=== PATIENT | female | born 1965 | race Caucasian/White ===

== ENCOUNTER → 2017-09-12 10:21 | Outpatient (CLI) | payer MEDICAID, SELFPAY ==
[2017-09-12 11:44] LABS: Absolute Lymphocyte Count 1.47 X10^3/ul (0.83-4.51); Absolute Neutrophil Count 4.2 X10^3/uL (2.0-7.7); Basophil# 0.05 X10^3/uL; Basophil% 0.8 % (0-1); Eosinophil# 0.15 X10^3/uL; Eosinophils% 2.3 % (0-5); Hematocrit 43.5 % (37-47); Hemoglobin 14.2 g/dl (12.0-15.0); Lymphocyte # 1.47 X10^3/ul (4.0); Lymphocyte % 22.9 % (19-41); Mean Corp Hgb Conc 32.6 g/gl (32-36); Mean Corpuscular Volume 88.8 fL (81-99); Mean Platelet Vol. 10.8 fl (6.2-12.0); Monocyte# 0.55 X10^3/uL; Monocyte% 8.6 % (0-10); Neutrophil # 4.19 X10^3/uL (2.7-7.7); Neutrophil % 65.1 % (47-70); POSITIVE COUNT NO; POSITIVE DIFFERENTIAL NO; POSITIVE MORPHOLOGY NO; Platelet Count 375 K/mm3 (150-450); RBC Distribution Width CV 14.6 % (11.6-14.6); White Blood Count 6.4 K/mm3 (4.4-11.0)
[2017-09-12 11:48] LABS: Prothrombin Time (Protime)PT. 13.2 SECONDS (11.7-14.9)
[2017-09-12 12:04] LABS: Anion Gap 10 (5-15); BUN 17 mg/dL (7-18); BUN/Creat Ratio 17.6 RATIO (10-20); Calcium,Total 8.8 mg/dL (8.5-10.1); Chloride 105 mmol/L (98-107); Creatinine, Serum 0.96 mg/dL (0.55-1.02); EST Glomerular Filtration Rate 64 mL/min (>60); Est Glom Filt Rate - Afr Amer 78 mL/min (>60); Glucose 80 mg/dL (74-106); Potassium 3.9 mmol/L (3.5-5.1); Sodium Level 140 mmol/L (136-145)
== END ==
PROVIDERS: Family Provider Family Medicine; PCP Family Medicine; Visit Provider Internal Medicine Cardiovascular Disease
DX: R94.39 Abnormal result of other cardiovascular function study (principal)
CPT/HCPCS: 36415; 80048; 85025; 85610

== ENCOUNTER → 2017-09-13 09:59 | Day surgery (SDC) | payer MEDICAID, SELFPAY ==
[2017-09-12 11:23] VITALS: BMI 25.2
[2017-09-13 11:44] LABS: Pregnancy, Serum, hCG Quali. NEGATIVE Negative (0-9 Nonpreg)
--- NOTE | 2017-09-13 12:46 | CL.D_ITS ---
Patient Name: BRAD HOPPER Study Date: 09/13/2017 Performing: Ebenezer Lama MD Ht: 66.92 inches 170 cm : 1965 Wt: 160.94 lbs 73 kg Age: 52 Gender: female BSA: 1.84 PROCEDURE(S) PERFORMED KP29-PUT/COR/LV CLINICAL PROFILE AND INDICATIONS Indications: Other Heart Failure: None Stress/Imaging Stress Test w/SPECT MPI: Yes Result: Positive Low RiskStress Test with SPECT MPI: Positive Low Risk Angina Classification Anginal Classification w/in 2 Weeks: CCS I CAD Presentations: No Sxs, no angina. CONCLUSIONS Normal coronary arteries Normal LV size, wall motion,and systolic function RECOMMENDATIONS Medical therapy DESCRIPTION OF PROCEDURE The patient arrived to the procedure lab. The risks and benefits of the procedure as well as a full d escription of our services here and current unavailability of surgical backup were fully explained to the patient and/or their significant other prior to the catheterization. The Timeout was completed, verifying the correct patient and procedure. The patient's procedural site was prepped and draped in the usual fashion. Local anesthetic was given subcutaneously to right groin region with Lidocaine 2%. Using a modified Seldinger technique, Left Coronary Artery selective angiography was performed in multiple views using a 5 Fr. JL4 catheter. Right Coronary Artery selective angiography was then perfo rmed in multiple views using a 5 Fr. 3DRC (Jorge) catheter. Left Ventriculography was performed in HOWELL projection using a 5 Fr. Pigtail catheter. LV to AO pullback pressures were then recorded.The ar terial sheath was pulled and a Mynx closure device was deployed for hemostasis CORONARY ANGIOGRAPHY DOMINANCE: Right Dominant LEFT HEART ASSESSMENT Left Ventricular Ejection Fraction: by LV Gram 60 % Normal LV wall motion Normal Left Ventricular systolic function Normal Left Ventricular systolic function LEFT MAIN: Angiographically normal LEFT ANTERIOR DECENDING ARTERY: Angiographically normal CIRCUMFLEX ARTERY: Angiographically normal RIGHT CORONARY ARTERY: Angiographically normal COMPLICATIONS No Complications PROCEDURE MEDICATIONS Versed 1 mg IV Oxygen: 2 L/min via nasal cannula SUMMARY OF HEMODYNAMIC DATA Time AIR REST ECG 10:34:10 AO 121/77 (96) SA 12:20:42 LV 103/3, 9 12:25:59 LV 140/3, 11 12:26:06 LV 122/0, 13 12:27:18 LVp 123/0, 13 12:27:21 AOp 131/72 (96) 12:27:26 Signed By Ebenezer Lama MD On 09/13/2017 12:46:12 Ebenezer Lama MD
== END ==
PROVIDERS: Family Provider Family Medicine; PCP Family Medicine; Visit Provider Internal Medicine Cardiovascular Disease
DX: R94.39 Abnormal result of other cardiovascular function study (principal); E78.5 Hyperlipidemia, unspecified; F32.9 Major depressive disorder, single episode, unspecified; M79.7 Fibromyalgia; K21.9 Gastro-esophageal reflux disease without esophagitis; E03.9 Hypothyroidism, unspecified; Z87.891 Personal history of nicotine dependence
CPT/HCPCS: 84703; 93458; 99152; 99153; C1760; J7030; C1769; Q9967

== ENCOUNTER → 2017-09-26 09:50 | Outpatient (CLI) | payer MEDICAID, SELFPAY ==
--- NOTE | 2017-09-26 09:53 | US_ITS ---
STUDY: ABDOMINAL ULTRASOUND - RIGHT UPPER QUADRANT REASON FOR VISIT: Female, 52 years old. Right upper quadrant pain. TECHNIQUE: Ultrasound evaluation of the right upper quadrant was performed with real-time and static minaya-scale imaging. TECHNICAL QUALITY: Adequate. COMPARISON: None. FINDINGS: Liver: The liver measures 14.6 cm. There is normal echogenicity of the liver. The bile ducts are within normal limits. There is hepatic color flow. The direction of portal flow is hepatopetal. There is no demonstrated mass lesion. Gallbladder: Normal distended gallbladder. The gallbladder wall measures 2.6 mm. There is a negative sonographic Garcia's sign. There is no pericholecystic fluid. There is a solitary echogenic gallstone within the gallbladder. This measures 1.3 cm x 1 cm. Common Bile Duct (C.B.D.): The common bile duct measures 4.2 mm. Pancreas: Normal size of the head, body of the pancreas. The tail portion is obscured due to overlying bowel gas. There is normal echogenicity of the pancreas. There is no demonstrated pancreatic mass or cyst. Right Kidney: Normal size of the right kidney. The right kidney measures 10.2 cm x 4.9 cm x 5.0 cm. Normal renal cortex. The right cortex measures 1.0 cm. There is no demonstrated renal mass or cyst. There is no right hydronephrosis. US/Abdomen Limited IMPRESSION: Solitary gallstone. Electronically Signed: Oleg Maddox MD at 11:17 EDT Tel [phone], Service support ,
== END ==
PROVIDERS: Family Provider Family Medicine; PCP Family Medicine; Visit Provider Family Medicine
DX: R10.11 Right upper quadrant pain (principal)
CPT/HCPCS: 76705

== ENCOUNTER 2017-10-11 08:52 | Day surgery (SDC) | payer MEDICAID, SELFPAY ==
--- NOTE | 2017-10-11 | IMM_PTH ---
PATIENT: BRAD PROCTOR LOC: EN U#:[id number] AGE/SX: 52/F ROOM: RE10/11/[address]: Dr. Jamar Madrigal MD : 1965 BED: DIS: 10/11/2017 SPEC #: [id number] RECD: 10/14/17 11:31 STATUS: JOSE DANILO #: [id number] LOUIS: 10/11/17 00:[address]: Jamar Madrigal DEPT: IMMUNOHISTOCHEMISTRY RECD BY: Angeline Clayton ENTERED: 10/14/17 11:31 SP TYPE: IMMUNO OTHR DR: Loretta Finley DO Tissues: A - Stomach, NOS Procedures: H Pylori (initial) PHYSICIAN & INSTITUTION [place] [id number] SPECIMEN INFORMATION: Tissue Source: A ? Biopsy gastric antrum Clinical Info: Epigastric pain, dysphagia Specimen Number: [id number] CPT code: 69385 METHODOLOGY: Deparaffinized sections of prefer/formalin-fixed tissue or PAP/DQ stained slides are incubated with monoclonal/polyclonal antibodies/oligonucleotide probes. Localization is made via biotin free immunoperoxidase method. Appropriate controls are performed and reacted as expected. Results on target cell population are indicated in the following table: RESULTS: ANTIBODY / CLONE RESULT Block A H Pylori (polyclonal) negative These tests were developed and their performance characteristics determined by [facility]. They may not have been cleared or approved by the U.S. Food and Drug Administration. The FDA has determined that such clearance or approval is not necessary. INTERPRETATION: A. Gastric antrum, biopsy: Negative for Helicobacter pylori organisms. SJ:ina 10/14/17
[2017-10-11 09:15] VITALS: BP 110/76; PULSE 73; RESP 16; TEMP 36.4; O2SAT 100; BMI 25.0
[2017-10-11 09:15] LABS: Internal QC Validated? YES +Cl - CLEAR BKGD; Pregnancy, Urine Negative Negative
--- NOTE | 2017-10-11 10:11 | GASB_PTH ---
PATIENT: BRAD PROCTOR LOC: EN U#:[id number] AGE/SX: 52/F ROOM: RE10/11/[address]: Dr. Jamar Madrigal MD : 1965 BED: DIS: 10/11/2017 SPEC #: [id number] RECD: 10/11/17 13:58 STATUS: JOSE DANILO #: [id number] LOUIS: 10/11/17 10:[address]: Jamar Madrigal DEPT: SURGICAL PATHOLOGY RECD BY: Dylan Leyva ENTERED: 10/11/17 13:58 SP TYPE: Gastric Bx OTHR DR: Loretta Finley DO Tissues: A - Gastric mucous membrane B - Gastric mucous membrane Procedures: Surgery Specimen Level IV HEADER OPERATION: EGD with biopsy and polypectomy PRE-OP DIAGNOSIS: Epigastric pain, dysphagia TISSUE SUBMITTED: A ? Biopsy gastric antrum ? path/H. pylori, B ? Gastric polyp MICROSCOPIC DIAGNOSIS A. Gastric antrum, biopsy: Mild gastritis. B. Gastric polyp, polypectomy: Fundic gland polyp. EVERTON:ina 10/14/17 COMMENT A. The results of immunohistochemistry for Helicobacter pylori will be reported separately ([id number]). MICROSCOPIC DESCRIPTION Slides are reviewed. A. The specimen shows fragments of gastric mucosa with chronic inflammatory cell infiltrates in the lamina propria consisting of lymphocytes and plasma cells, consistent with mild chronic gastritis. GROSS DESCRIPTION A - Received in fixative is one container labeled with the patient's name and designated biopsy gastric antrum. The specimen consists of two irregular fragments of light roca soft tissue that in aggregate measure 0.8 x 0.3 x 0.1 cm. The specimen is totally submitted in one cassette. B - Received in fixative is one container labeled with the patient's name and designated gastric polyp. The specimen consists of a pink-red polyp measuring 1.4 x 1 x 0.5 cm. The apparent base is inked. The specimen is serially sectioned and submitted entirely in one cassette. / EVERTON:ina 10/11/17 TC:3 CPT: 03659 x2
[2017-10-11 10:23] VITALS: BP 100/74; BP 110/76; PULSE 63; RESP 19; TEMP 36.6; O2SAT 98
[2017-10-11 10:28] VITALS: BP 110/76; BP 99/77; PULSE 68; RESP 17; O2SAT 98
--- NOTE | 2017-10-11 10:31 | OP.PCM_ITS ---
Problem List (1) Epigastric pain Status: Acute Report of Operation Date of Procedure: 10/11/17 Pre-Operative Diagnosis: Epigastric pain and dysphagia Post-Operative Diagnosis: Multiple stomach polyps. Hiatal hernia Surgery/Procedure Performed:: EGD with biopsy and snare polypectomy Specimen's removed: 1. Antral biopsy. 2. Gastric polyp Description of Procedure: The major risks and benefits associated with the procedure were explained to the patient in detail. The patient verbalized understanding and agreement with the same. The patient was then placed in the left lateral decubitus position. IV sedation was started by anesthesia. The endoscope was then advanced under direct visualization over the tongue, into the esophagus , stomach and duodenum. It was slowly withdrawn and the mucosa was carefully evaluated. Duodenal mucosal abnormalities were not visualized. Retrograde views of the stomach did reveal moderate sized hiatal hernia. A biopsy of the antrum was performed with cold forceps. The patient had innumerable large gastric polyps of the fundus and cardia of the stomach. 1 of these was selected and removed with snare. These polyps were very large and covered these areas of the stomach. The antrum was spared. The scope was straightened and withdrawn into the hiatal hernia. The GE junction was normal and did not show any signs of Plasencia's esophagus. There were no strictured areas to explain the patient's dysphagia. Careful examination of the remainder of the esophagus was normal. The scope was then withdrawn from the patient and the procedure terminated. It was well tolerated and there were no immediate complications.
[2017-10-11 10:33] VITALS: BP 106/72; BP 110/76; PULSE 62; RESP 16; O2SAT 96
[2017-10-11 10:38] VITALS: BP 104/79; BP 110/76; PULSE 63; RESP 16; TEMP 37; O2SAT 99
[2017-10-11 11:32] VITALS: BP 110/76
== END 2017-10-11 11:33 | disposition home or self-care (01) ==
LOC: EN 08:52 → AC 08:54
PROVIDERS: Anesthesiology; Family Provider Family Medicine; PCP Family Medicine; Visit Provider Surgery
PROC: 0DJ08ZZ Inspection of Upper Intestinal Tract, Via Natural or Artificial Opening Endoscopic (ICD-10-PCS; CPT 43235; principal; 2017-10-11 09:55)
DX: K31.7 Polyp of stomach and duodenum (principal); K29.70 Gastritis, unspecified, without bleeding; K80.20 Calculus of gallbladder without cholecystitis without obstruction; R13.10 Dysphagia, unspecified; K44.9 Diaphragmatic hernia without obstruction or gangrene; E78.5 Hyperlipidemia, unspecified; F32.9 Major depressive disorder, single episode, unspecified; M79.7 Fibromyalgia; K21.9 Gastro-esophageal reflux disease without esophagitis; E03.9 Hypothyroidism, unspecified; Z87.891 Personal history of nicotine dependence
CPT/HCPCS: 43251; 81025; 88305; 88342; J7120

== ENCOUNTER 2018-10-16 08:01 | Day surgery (SDC) | payer MEDICAID, SELFPAY ==
[2018-10-03 13:34] VITALS: BMI 25.0
[2018-10-16 08:27] VITALS: BP 114/81; PULSE 73; RESP 16; TEMP 36.1; O2SAT 98
--- NOTE | 2018-10-31 09:21 | HP_ITS ---
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 Is patient in pain?: No Allergies Penicillins Allergy (Verified 10/30/18 14:48) rash Medications esomeprazole magnesium 20 mg capsule,delayed release 40 mg PO QDAY cap 09/10/17 [History Confirmed 10/30/18] levothyroxine 25 mcg tablet 25 mcg PO QDAY tab 09/10/17 [History Confirmed 10/30/18] sumatriptan 100 mg tablet 100 mg PO ONCE PRN 09/10/17 [History Confirmed 10/30/18] Cholecalciferol (Vitamin D3) [Vitamin D3] 1,000 unit PO DAILY 10/07/17 [History Confirmed 10/30/18] PFS Medical History Chest pain (Acute) Abnormal cardiovascular stress test (Acute) Hyperlipidemia (Chronic) Depression (Chronic) Fibromyalgia (Chronic) GERD (gastroesophageal reflux disease) (Chronic) Hiatal hernia (Chronic) History of ETOH abuse (Chronic) Hypothyroidism (Chronic) IBS (irritable bowel syndrome) (Chronic) Kidney stones (Chronic) Migraine (Chronic) Rosacea (Chronic) Surgical History H/O right heart catheterization (Acute) History of esophagogastroduodenoscopy (EGD) (Acute) History of appendectomy (Chronic) History of ovarian cystectomy (Chronic) kidney stone removal (Chronic) right shoulder surgery (Chronic) Family History Father CAD (coronary artery disease) Myocardial infarction [place] age 68 Brother Kidney disease renal cancer Cancer Mother Cancer Hypertension Social History Smoking Status: Former smoker quit date: 06/10/15 pack-years: 2 alcohol intake: former year quit: 2016 HPI HPI HPI: BRAD HOPPER, is a 53 F who presents to the office today for HPI HPI Surgical H&P: Yes HPI: BRAD HOPPER, is a 53 F who presents to the office today for follow-up after manometry. Patient reports that her dysphasia and GERD have been getting worse. ROS General General: Yes appetite; no weight change, fatigue, colon cancer, breast cancer or weakness HEENT HEENT: No difficulty swallowing, eye injury, eye surgery, swollen glands or hoarseness Endo Endocrine: Yes thyroid disease; no diabetes mellitus, thyroid cancer, Hair loss, heat intolerance or cold intolerance Musc Musculoskeletal: No back problems, arthritis, rheumatoid arthritis, gout or joint pain Cardio Cardiovascular: Yes chest pain; no murmur, pacemaker, heart disease, atrial fibrillation, high blood pressure, heart attack, heart stent, palpitations or shortness of breat with exertion Psych Psychiatric: Yes depression; no anxiety or hearing voices Resp Respiratory: No shortness of breath, No sleep apnea, No cough, No COPD, No asthma, No emphysema, No wheezing Gastro Gastrointestinal: Yes abdominal pain, No nausea or vomiting, No diarrhea, No constipation, No blood in stool, Yes acid reflux, No hemorrhoids, No ulcers, Yes gallbladder problem, No black,tarry stools Neuro Neurologic: No weakness Exam Const General: cooperative Orientation: alert, oriented x3 Resp Effort & Inspection: normal respiratory effort Auscultation: clear to auscultation bilaterally Cardio Rate: regular rate Rhythm: regular rhythm Heart Sounds: no murmurs GI Inspection: non-distended Palpation: soft, nontender Assessment & Plan Problems 1. Gastroesophageal reflux disease, esophagitis presence not specified K21.9 2. Hiatal hernia K44.9 Plan Patient has GERD and a hiatal hernia. She is experiencing dysphagia and refractory heart burn. She had manometry which showed weak swallow. The next step in her preoperative work-up would be an EGD with pH probe. I discussed toupet fundoplication with the patient due to her manometry results. I discussed the risks of the procedure as well as the benefits. I we will discuss further after EGD is performed. I explained endoscopy in detail to the patient. I explained the risks including but not limited to stroke or heart attack with anesthesia, perforation of the GI tract, bleeding, infection. I explained that any of these could necessitate further emergency surgery. The patient understands and all questions were answered sufficiently. The patient wishes to proceed with procedure. Jamar Madrigal MD Pager: [facility] [place] [facility] [address] [place] [address], [address] [place] [address] Office: Orders Orders: EGD with 48 pH probe 10/30/18 K21.9, R10.13, R13.10 Coding Level of Care Code Off vis,est,level 3 Diagnoses Gastroesophageal reflux disease, esophagitis presence not specified K21.9 ??Esophagitis presence: esophagitis presence not specified Hiatal hernia K44.9 10/31/18 0921 <Electronically signed by Jamar Madrigal MD> Date Jamar Madrigal MD
== END 2018-10-16 08:45 | disposition home or self-care (01) ==
LOC: EN 08:02
PROVIDERS: Family Provider Family Medicine; PCP Family Medicine; Referring Provider Surgery; Visit Provider Surgery
PROC: F00ZJWZ Instrumental Swallowing and Oral Function Assessment using Swallowing Equipment (ICD-10-PCS; CPT 43235; principal; 2018-10-16 07:55)
DX: K21.9 Gastro-esophageal reflux disease without esophagitis (principal); R13.10 Dysphagia, unspecified; E78.5 Hyperlipidemia, unspecified; F32.9 Major depressive disorder, single episode, unspecified; M79.7 Fibromyalgia; E03.9 Hypothyroidism, unspecified; K58.9 Irritable bowel syndrome, unspecified; G43.909 Migraine, unspecified, not intractable, without status migrainosus; L71.9 Rosacea, unspecified; Z87.442 Personal history of urinary calculi; Z87.891 Personal history of nicotine dependence
CPT/HCPCS: 91010

== ENCOUNTER 2018-11-18 09:50 | Day surgery (SDC) | payer MEDICAID, SELFPAY ==
[2018-10-30 14:52] VITALS: BMI 25.4
--- NOTE | 2018-10-31 09:21 | HP_ITS ---
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 Is patient in pain?: No Allergies Penicillins Allergy (Verified 10/30/18 14:48) rash Medications esomeprazole magnesium 20 mg capsule,delayed release 40 mg PO QDAY cap 09/10/17 [History Confirmed 10/30/18] levothyroxine 25 mcg tablet 25 mcg PO QDAY tab 09/10/17 [History Confirmed 10/30/18] sumatriptan 100 mg tablet 100 mg PO ONCE PRN 09/10/17 [History Confirmed 10/30/18] Cholecalciferol (Vitamin D3) [Vitamin D3] 1,000 unit PO DAILY 10/07/17 [History Confirmed 10/30/18] PFS Medical History Chest pain (Acute) Abnormal cardiovascular stress test (Acute) Hyperlipidemia (Chronic) Depression (Chronic) Fibromyalgia (Chronic) GERD (gastroesophageal reflux disease) (Chronic) Hiatal hernia (Chronic) History of ETOH abuse (Chronic) Hypothyroidism (Chronic) IBS (irritable bowel syndrome) (Chronic) Kidney stones (Chronic) Migraine (Chronic) Rosacea (Chronic) Surgical History H/O right heart catheterization (Acute) History of esophagogastroduodenoscopy (EGD) (Acute) History of appendectomy (Chronic) History of ovarian cystectomy (Chronic) kidney stone removal (Chronic) right shoulder surgery (Chronic) Family History Father CAD (coronary artery disease) Myocardial infarction [place] age 68 Brother Kidney disease renal cancer Cancer Mother Cancer Hypertension Social History Smoking Status: Former smoker quit date: 06/10/15 pack-years: 2 alcohol intake: former year quit: 2016 HPI HPI HPI: BRAD HOPPER, is a 53 F who presents to the office today for HPI HPI Surgical H&P: Yes HPI: BRAD HOPPER, is a 53 F who presents to the office today for follow-up after manometry. Patient reports that her dysphasia and GERD have been getting worse. ROS General General: Yes appetite; no weight change, fatigue, colon cancer, breast cancer or weakness HEENT HEENT: No difficulty swallowing, eye injury, eye surgery, swollen glands or hoarseness Endo Endocrine: Yes thyroid disease; no diabetes mellitus, thyroid cancer, Hair loss, heat intolerance or cold intolerance Musc Musculoskeletal: No back problems, arthritis, rheumatoid arthritis, gout or joint pain Cardio Cardiovascular: Yes chest pain; no murmur, pacemaker, heart disease, atrial fibrillation, high blood pressure, heart attack, heart stent, palpitations or shortness of breat with exertion Psych Psychiatric: Yes depression; no anxiety or hearing voices Resp Respiratory: No shortness of breath, No sleep apnea, No cough, No COPD, No asthma, No emphysema, No wheezing Gastro Gastrointestinal: Yes abdominal pain, No nausea or vomiting, No diarrhea, No constipation, No blood in stool, Yes acid reflux, No hemorrhoids, No ulcers, Yes gallbladder problem, No black,tarry stools Neuro Neurologic: No weakness Exam Const General: cooperative Orientation: alert, oriented x3 Resp Effort & Inspection: normal respiratory effort Auscultation: clear to auscultation bilaterally Cardio Rate: regular rate Rhythm: regular rhythm Heart Sounds: no murmurs GI Inspection: non-distended Palpation: soft, nontender Assessment & Plan Problems 1. Gastroesophageal reflux disease, esophagitis presence not specified K21.9 2. Hiatal hernia K44.9 Plan Patient has GERD and a hiatal hernia. She is experiencing dysphagia and refractory heart burn. She had manometry which showed weak swallow. The next step in her preoperative work-up would be an EGD with pH probe. I discussed toupet fundoplication with the patient due to her manometry results. I discussed the risks of the procedure as well as the benefits. I we will discuss further after EGD is performed. I explained endoscopy in detail to the patient. I explained the risks including but not limited to stroke or heart attack with anesthesia, perforation of the GI tract, bleeding, infection. I explained that any of these could necessitate further emergency surgery. The patient understands and all questions were answered sufficiently. The patient wishes to proceed with procedure. Jamar Madrigal MD Pager: [facility] [address] [place] [address], [address] [place] [address] Office: Orders Orders: EGD with 48 pH probe 10/30/18 K21.9, R10.13, R13.10 Coding Level of Care Code Off vis,est,level 3 Diagnoses Gastroesophageal reflux disease, esophagitis presence not specified K21.9 ??Esophagitis presence: esophagitis presence not specified Hiatal hernia K44.9 10/31/18 0921 <Electronically signed by Jamar Madrigal MD> Date Jamar Madrigal MD ` I have re-examined the patient. There are no clinical changes since date of exam.
[2018-11-18] VITALS (7 sets, daily range): BP systolic 100–108; BP diastolic 66–75; PULSE 54–78; RESP 14–16; TEMP 36.4–37; O2SAT 94–97; BMI 25.0
[2018-11-18 10:26] LABS: Internal QC Validated? YES +Cl - CLEAR BKGD; Pregnancy, Urine Negative Negative
--- NOTE | 2018-11-18 12:27 | OP.ENDO_ITS ---
11/18/2018 Loretta Camacho Do Re : Upper GI endoscopy procedure for Mari Echavarria Dear Janice This procedure was performed on Sunday, November 18, 2018. My impressions and recommendations are as follows: Impressions : - Medium-sized hiatal hernia. - Z-line regular, 37 cm from the incisors. - The HADLEY pH capsule was positioned 30 cm from the incisors, which was 5 cm proximal to the GE junction. - No specimens collected. Recommendations : - Discharge patient to home. - Resume previous diet. - Continue present medications. My findings are described in the full procedure note, which is enclosed. If I can be of further assistance, please feel free to contact me at Doctor phone number(s): , Work: . Sincerely, Jamar Madrigal MD 11/18/2018 12:27:04 PM This report has been signed electronically.
== END 2018-11-18 13:43 | disposition home or self-care (01) ==
LOC: EN 09:52 → AC 09:53
PROVIDERS: Anesthesiology; Family Provider Family Medicine; PCP Family Medicine; Referring Provider Family Medicine; Visit Provider Surgery
PROC: (CPT 43235; principal; 2018-11-18 10:55)
DX: K44.9 Diaphragmatic hernia without obstruction or gangrene (principal); K21.9 Gastro-esophageal reflux disease without esophagitis; Z88.0 Allergy status to penicillin; Z87.891 Personal history of nicotine dependence; R12 Heartburn
CPT/HCPCS: 43235; 81025; J7120

== ENCOUNTER 2019-01-05 13:48 | Observation (INO) | payer MEDICAID, SELFPAY ==
[2018-11-18 10:21] VITALS: BMI 25.0
--- NOTE | 2018-12-30 10:28 | EKG12_ITS ---
Test Reason : PRE OP Blood Pressure : / mmHG Vent. Rate : 071 BPM Atrial Rate : 071 BPM P-R Int : 158 ms QRS Dur : 092 ms QT Int : 402 ms P-R-T Axes : 039 -33 060 degrees QTc Int : 436 ms Normal sinus rhythm Left axis deviation Abnormal ECG Confirmed by TACO BAEZ ([id number]), copy editor NARENDRA ELIZABETH ([id number]) on 01/01/2019 10:00:30 AM Referred By: Jamar Madrigal Confirmed By:TACO BAEZ
[2019-01-05] VITALS (11 sets, daily range): BP systolic 96–109; BP diastolic 62–82; PULSE 60–84; RESP 14–18; TEMP 36–37.3; O2SAT 94–100; BMI 25.4
--- NOTE | 2019-01-05 09:18 | HP.PCM_ITS ---
Problem List (1) Hiatal hernia Status: Acute (2) GERD (gastroesophageal reflux disease) Status: Acute Qualifiers: History of Present Illness Date of Admission: 01/05/19 The patient is a 53 year old F here for elective repair of hiatal hernia and toupee fundoplication. Patient does not report any changes since last time I saw her. Past Medical History Past Medical History (Chronic Problems): Chronic Problems (Last Reviewed 10/30/18 @ 14:40 by Susan Jaramillo) Hyperlipidemia (Chronic) Medical History: Medical History (Last Reviewed 10/30/18 @ 14:40 by Susan Jaramillo) Chest pain (Acute) R07.9 Abnormal cardiovascular stress test (Acute) R94.39 Hyperlipidemia (Chronic) E78.5 Depression F32.9 Fibromyalgia M79.7 GERD (gastroesophageal reflux disease) K21.9 Hiatal hernia K44.9 History of ETOH abuse Z87.898 Hypothyroidism E03.9 IBS (irritable bowel syndrome) K58.9 Kidney stones N20.0 Migraine G43.909 Rosacea L71.9 Allergies Penicillins Allergy (Verified 12/29/18 09:05) rash Home Medications: Ambulatory Orders Medication Instructions Recorded levothyroxine 25 mcg tablet 25 mcg PO QDAY tab 09/10/17 sumatriptan 100 mg tablet 100 mg PO ONCE PRN 09/10/17 Cholecalciferol (Vitamin D3) 1,000 unit PO DAILY 10/07/17 [Vitamin D3] Famotidine [Pepcid AC] 20 mg PO PRN PRN 12/29/18 Medroxyprogesterone Acetate 10 mg PO DAILY 12/29/18 [Provera] Surgical History: Surgical History (Last Reviewed 10/30/18 @ 14:40 by Susan Jaramillo) H/O right heart catheterization Z98.890 negative 09/25 History of esophagogastroduodenoscopy (EGD) Z98.890 History of appendectomy Z90.49 History of ovarian cystectomy Z98.890, Z87.42 kidney stone removal right shoulder surgery Smoking Status: Former smoker Review of Systems Constitutional: Denies: Anorexia, Chills HEENT: Denies: Difficulty Swallowing Cardiovascular: Denies: Chest Pain Respiratory: Denies: Cough, Shortness of Breath Gastrointestinal: Denies: Abdominal Pain, Nausea, Vomiting Musculoskeletal: Denies: Joint Tenderness Skin: Denies: Dryness, Jaundice Neurological: Denies: Balance problems Hematologic/ Lymphatic: Denies: Anemia VTE Information - Inpt Only VTE Present on Admission: No VTE Mechan Device Prophylaxis: SCD's - Physical Exam General: Alert, Oriented x3 Neck: No JVD Lungs: Normal air movement Cardiovascular: Regular rate, Regular Rhythm Abdomen: Soft, Non Tender, Non-Distended Body Mass Index (BMI) 25.0 Assessment/Plan All Active Problems (Last Reviewed 10/30/18 @ 14:40 by Susan Jaramillo) Hiatal hernia (Acute) GERD (gastroesophageal reflux disease) (Acute) Dysphagia (Acute) Epigastric pain (Acute) Chest pain (Acute) Abnormal cardiovascular stress test (Acute) 53-year-old female with GERD and hiatal hernia 1. Patient has had extensive work-up before surgery. She had upper GI as well as manometry and EGD with pH probe. Patient has hiatal hernia and pH probe demonstrated elevated DeMeester score. The patient also had slightly weak in swallow and manometry so to payphone application was recommended instead of Yanna fundoplication. I discussed hiatal hernia repair and toupee fundoplication to the patient in great detail as well as the risks. The patient is here for laparoscopic hiatal hernia repair and toupee fundoplication. Jamar Madrigal MD Pager: [facility] [address] [place] [address], [address] [place] [address] Office:
[2019-01-05 09:57] LABS: Internal QC Validated? YES +Cl - CLEAR BKGD; Pregnancy, Urine Negative Negative
[2019-01-05] MEDS: Bupiv/Epi 0.5% Mpf 30 ML Vial (09:57)
--- NOTE | 2019-01-05 13:55 | PCM.OPRPT ---
Problem List (1) Hiatal hernia Status: Acute (2) GERD (gastroesophageal reflux disease) Status: Acute Qualifiers: Esophagitis presence: esophagitis presence not specified Report of Operation Date of Procedure: 01/05/19 Pre-Operative Diagnosis: GERD and hiatal hernia Post-Operative Diagnosis: Same Surgery/Procedure Performed:: 1. Laparoscopic hiatal hernia repair with toupet fundoplication. 2. EGD Description of Procedure: Patient was brought back to the operating room and general anesthesia was induced. The abdomen was prepped and draped in usual sterile fashion. A small incision was made in the skin superior and left of the umbilicus. A 5 mm port was placed into this incision using Visiport technique with 5 mm camera. Once the abdomen was entered it was insufflated to 15 mmHg. The abdomen was inspected and there were no injuries from entry. Next under direct visualization a 12 mm port was placed in the right upper quadrant and a 5 mm port right sided laterally as well as a 5 mm port left-sided laterally. A small incision was made in the subxiphoid space and the Myra liver retractor was placed into this incision and used to elevate the left lobe of the liver and secured in place on the Omni-Tract. Next the hepatogastric ligament was divided using harmonic scalpel. The right crura was identified and dissected free using the harmonic scalpel and blunt dissection. The stomach and hiatal hernia sac were reduced into the abdomen. The esophagus was dissected free superiorly. Next attention was paid to the greater curvature. The greater curvature was entered using the harmonic scalpel and elevated. The greater curvature was followed superiorly past the short gastrics and splenogastric ligament. Once the stomach was mobilized it was retracted medially and the left crura was dissected free. A small window was made beneath the esophagus. A small [place] drain was placed around the esophagus and this was used to elevate the esophagus. Using a combination of blunt and harmonic dissection the esophagus was dissected free into the mediastinum and cephalad. The Nadine was released and there was at least 2 cm of esophagus present in the abdomen without tension. Next the stomach was retracted laterally and 3 interrupted Nurolon sutures were used to reapproximate the crura and obliterate the hiatal hernia space. There was still ample room around the esophagus that this was not tight. Next the wrap was placed behind the esophagus and there was no tension on it. A single Nurolon suture was placed posteriorly between the stomach and the crura. Next anteriorly an 0 Nurolon suture was placed between the distal fundus and the esophagus and yaw-phrenic ligament. This was tied and then in a continuous fashion run inferiorly wrapping the fundus of the stomach to the esophagus. In a similar fashion the lateral fundus of the stomach was sutured to the esophagus creating a partial toupee wrap. The wrap appeared to be about 270 degrees with anterior portion of the esophagus unwrapped. Next an EGD scope was placed into the mouth and down into the esophagus. The scope passed easily into the stomach and it was retroflexed in the stomach was insufflated. There is no leak or bubbles noted in the abdomen. Retroflexed view revealed a good wrap of the esophagus with no hiatal hernia or bleeding. The air was suctioned from the stomach and the scope was removed. Next the 12 mm port was removed under direct visualization. Using an 0 Vicryl suture in a minaya needle the fascia of this incision was closed with an interrupted suture. Next the Myra liver retractor was removed without any trauma. The skin incisions were then anesthetized with Marcaine and closed with interrupted 4-0 Monocryl sutures and Steri-Strips and bandages. Patient was awoken and taken to PACU in stable condition. The patient tolerated the procedure well. - Admit VTE Documentation VTE Mechan Device Prophylaxis: SCD's
[2019-01-05] MEDS: Ketorolac 15 MG/ML Vial IV ×2 (14:27→22:06)
[2019-01-05] MEDS: 0.9% Normal Saline 1,000 ML 100 ML IV (15:45)
[2019-01-05] MEDS: Morphine 2 MG/ML Syringe IV ×2 (15:45→17:11)
[2019-01-05] MEDS: Ondansetron 4 MG/2 ML Vial IV ×2 (15:45→22:12)
[2019-01-05] MEDS: 0.9% NaCl Peripheral Flush Adult/Peds IV (17:11)
[2019-01-05] MEDS: Morphine 4 MG/ML Syringe IV ×2 (20:04→23:38)
--- NOTE | 2019-01-05 20:27 | NURSING ---
Patient up and ambulated in hallway with CUSTODIAL AIDE at this time.
[2019-01-06] MEDS: 0.9% Normal Saline 1,000 ML 100 ML IV (01:41)
[2019-01-06] MEDS: Morphine 2 MG/ML Syringe IV ×2 (01:46→06:42)
[2019-01-06 01:51] VITALS: BP 89/50; PULSE 76; RESP 18; TEMP 37.3; O2SAT 95
[2019-01-06 03:34] VITALS: BP 97/56; PULSE 71; RESP 16; TEMP 37.2; O2SAT 96
[2019-01-06] MEDS: Ketorolac 15 MG/ML Vial IV ×2 (05:22→13:58)
[2019-01-06] MEDS: Levothyroxine 25 MCG TABLET PO (06:54)
--- NOTE | 2019-01-06 08:30 | PCM.PN.SRG ---
Subjective: Patient reports she is doing well with no reflux. Pain is well controlled. - Physical Exam General: Alert, Oriented x3 Lungs: Normal air movement Cardiovascular: Regular rate, Regular Rhythm Abdomen: Soft, Non-Distended, Tender - Mild tenderness to palpation over the incisions Vital Signs Temp Pulse Resp BP Pulse Ox 99 F 71 16 97/56 L 96 01/06/19 03:34 01/06/19 03:34 01/06/19 03:34 01/06/19 03:34 01/06/19 03:34 Oxygen Flow Rate (L/min) 2 Oxygen Delivery Method Room Air Weight: 157 lb 13.616 oz Body Mass Index (BMI) 25.4 Intake and Output for Last 24 Hours 01/04/19 01/05/19 01/06/19 23:59 23:59 23:59 Intake Total 3226 / 3226 680 / 680 Output Total 450 / 450 250 / 250 Balance 2776 / 2776 430 / 430 Laboratory Tests Past 24 Hrs 01/05/19 09:42 Urine Test Negative Medical Necessity - Tobacco Use Smoking Status: Former smoker Assessment/Plan All Active Problems (Last Reviewed 10/30/18 @ 14:40 by Susan Jaramillo) Hiatal hernia (Acute) GERD (gastroesophageal reflux disease) (Acute) Dysphagia (Acute) Epigastric pain (Acute) Chest pain (Acute) Abnormal cardiovascular stress test (Acute) 53-year-old female status post title hernia repair and toupet fundoplication 1. Patient appears to be doing well this morning. I will start her on a clear liquid diet and advance to full liquid diet as tolerated. Likely DC this afternoon. Jamar Madrigal MD Pager: [facility] [address] [place] [address], [address] [place] [address] Office:
--- NOTE | 2019-01-06 08:35 | DCINST_ITS ---
You will use the following diet at home:: Full liquid - NO STRAWS OR CARBONATED BEVERAGES Your liquids should be the consistency of: Regular/Thin Discharge Activity: Return to Normal Activity, May Shower - tomorrow Lifting Restrictions: 20 lbs for 2 weeks Call your doctor if your incision/area has: Continuous Slow Oozing, Sudden Increased Bleeding, Increased Pain/ Swelling, Increased Redness, Foul Smelling Discharge, Swelling at the incision site Call your doctor if you observe: Fever of 101 or Higher Change Dressing in (Days):: 2 - Remove white bandages in 2 days, remove steri strips in 7-10 days Cleanse incision/area with: Soap & Water Allergies/Adverse Reactions: Allergies Penicillins Allergy (Verified 01/05/19 09:45) rash Medications to take at Discharge levothyroxine 25 mcg tablet 25 mcg PO QDAY tab 09/10/17 sumatriptan 100 mg tablet 100 mg PO ONCE PRN 09/10/17 Cholecalciferol (Vitamin D3) [Vitamin D3] 1,000 unit PO DAILY 10/07/17 Medroxyprogesterone Acetate [Provera] 10 mg PO DAILY 12/29/18 Hydrocodone/APAP 7.5-325/15Ml [Lortab [Replacement] 7.5-325/15] 10 - 15 ml PO Q4H PRN PRN 5 Days #300 ml 01/06/19 The following prescriptions were given: Hydrocodone/APAP 7.5-325/15Ml [Lortab [Replacement] 7.5-325/15] 10 - 15 ml PO Q4H PRN PRN 5 Days #300 ml PRN Reason: Pain Transmission Status: Sent to [facility] Orders to be completed after discharge: 12 Lead EKG [[facility]] Time Frame: 12/29/18, Facility: [facility], Location: Cardiovascular Services Primary Care Physician: Loretta Jung DO [Primary Care Provider] - Test Results: Test results from this visit will be discussed in further detail at your follow- up appointment, if applicable. Please Follow Up With: Jamar Madrigal MD When: Please call to schedule 2 week follow up appointment. [phone]
[2019-01-06 09:23] VITALS: BP 99/63; PULSE 73; RESP 16; TEMP 36.8; O2SAT 96
[2019-01-06] MEDS: HYDROCODONE/APAP 7.5-325/15ML 15 ML UDC PO (12:46)
[2019-01-06 13:51] VITALS: BP 102/62; PULSE 71; RESP 16; TEMP 37; O2SAT 96
== END 2019-01-06 14:33 | disposition home or self-care (01) ==
LOC: SDC 14:59
PROVIDERS: Anesthesiology; Admitting Provider Surgery; Family Provider Family Medicine; PCP Family Medicine; Referring Provider Surgery; Visit Provider Surgery
PROC: (CPT 43325; principal; 2019-01-05 10:35)
DX: K44.9 Diaphragmatic hernia without obstruction or gangrene (principal); K21.9 Gastro-esophageal reflux disease without esophagitis; E78.5 Hyperlipidemia, unspecified; E03.9 Hypothyroidism, unspecified; M79.7 Fibromyalgia; K58.9 Irritable bowel syndrome, unspecified; L71.9 Rosacea, unspecified; Z87.898 Personal history of other specified conditions; Z79.899 Other long term (current) drug therapy; Z87.891 Personal history of nicotine dependence; G43.909 Migraine, unspecified, not intractable, without status migrainosus
CPT/HCPCS: 43281; 81025; 93005; 96361; 96374; 96375; 96376; 99218; J7030; J7120; A4216; G0378; G0379; J2405

== ENCOUNTER → 2019-02-04 09:11 | Outpatient (CLI) | payer MEDICAID, SELFPAY ==
[2019-02-03 13:56] VITALS: BMI 25.4
--- NOTE | 2019-02-04 09:14 | RAD_ITS ---
STUDY: AIR CONTRAST UPPER GI SERIES REASON FOR EXAM: Female, 53 years old. Dysphagia. Recent hiatal surgery repair. FLUOROSCOPY TIME (if supplied): (1:37) minutes/seconds TECHNIQUE: SINGLE CONTRAST AND AIR CONTRAST FLUOROSCOPIC IMAGES. COMPARISON: None. FINDINGS: The cervical esophagus demonstrates normal motility without aspiration. There is no stricture or extrinsic mass effect. No intraluminal polypoid mass is identified. The thoracic esophagus distends well without stricture or mucosal fold thickening. No mucosal ulcerations are identified. There is no extrinsic mass effect. There are no diverticula.There is narrowing at the gastroesophageal junction most likely secondary to the recent repair. The patient ingested a 12 mm tablet of barium. The tablet is trapped at the gastroesophageal junction. No hiatal hernia or gastroesophageal reflux was identified. The stomach distends well without mucosal fold thickening or mucosal ulceration. Multiple gastric polyps are seen. The duodenal bulb is freely distensible without deformity or ulceration. The duodenal sweep is normal in position and caliber. RAD/Upper GI w/BA Swallow IMPRESSION: Status post hiatal hernia repair with narrowing at the gastroesophageal junction. There is trapping of the 12 mm tablet of barium at the gastroesophageal junction. Multiple polyps are seen in the stomach. Electronically Signed: Oleg Maddox, at 9:17 EDT , Service support ,
== END ==
PROVIDERS: Family Provider Family Medicine; PCP Family Medicine; Referring Provider Surgery; Visit Provider Surgery
DX: R13.10 Dysphagia, unspecified (principal)
CPT/HCPCS: 74246

== ENCOUNTER 2019-02-13 08:02 | Day surgery (SDC) | payer MEDICAID, SELFPAY ==
[2019-02-03 13:56] VITALS: BMI 25.4
--- NOTE | 2019-02-04 02:25 | HP_ITS ---
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 Is patient in pain?: Yes (abdominal) Allergies Penicillins Allergy (Verified 02/03/19 13:56) rash Medications levothyroxine 25 mcg tablet 25 mcg PO QDAY tab 09/10/17 [History Confirmed 02/03/19] sumatriptan 100 mg tablet 100 mg PO ONCE PRN 09/10/17 [History Confirmed 02/03/19] Cholecalciferol (Vitamin D3) [Vitamin D3] 1,000 unit PO DAILY 10/07/17 [History Confirmed 02/03/19] Medroxyprogesterone Acetate [Provera] 10 mg PO DAILY 12/29/18 [History Confirmed 02/03/19] [facility] Medical History Chest pain (Acute) Abnormal cardiovascular stress test (Acute) Hyperlipidemia (Chronic) Depression (Chronic) Fibromyalgia (Chronic) GERD (gastroesophageal reflux disease) (Chronic) Hiatal hernia (Chronic) History of ETOH abuse (Chronic) Hypothyroidism (Chronic) IBS (irritable bowel syndrome) (Chronic) Kidney stones (Chronic) Migraine (Chronic) Rosacea (Chronic) Surgical History H/O right heart catheterization (Acute) History of esophagogastroduodenoscopy (EGD) (Acute) Status post laparoscopic Yanna fundoplication (Acute) History of appendectomy (Chronic) History of ovarian cystectomy (Chronic) kidney stone removal (Chronic) right shoulder surgery (Chronic) Family History Father CAD (coronary artery disease) Myocardial infarction [place] age 68 Brother Kidney disease renal cancer Cancer Mother Cancer Hypertension Social History (Updated 02/04/19 @ 14:25 by Jamar Madrigal MD) Smoking Status: Former smoker quit date: 06/10/15 pack-years: 2 alcohol intake: former year quit: 2016 HPI HPI HPI: BRAD PROCTOR, is a 53 F who presents to the office today for HPI HPI Surgical H&P: Yes HPI: BRAD PROCTOR, is a 53 F who presents to the office today for dysphasia. Patient reports that she has been having dysphagia with solids. She is able to tolerate solids but she feels that there is pain shooting up her right side of her chest and right neck after eating. She says that she is able to tolerate liquids. She is also having epigastric bloating. ROS General General: No weight change or fatigue HEENT HEENT: Yes difficulty swallowing Cardio Cardiovascular: No murmur, pacemaker, heart disease, atrial fibrillation, high blood pressure, heart attack, heart stent, palpitations, shortness of breat with exertion or chest pain Psych Psychiatric: No depression or anxiety Resp Respiratory: No shortness of breath, No sleep apnea, No cough, No COPD, No asthma, No emphysema, No wheezing Gastro Gastrointestinal: Yes abdominal pain, No nausea or vomiting, No diarrhea, No constipation, No blood in stool, No acid reflux, No hemorrhoids, No ulcers, No gallbladder problem, No black,tarry stools Mikal Hematologic: No blood thinners Exam Const General: cooperative Orientation: alert, oriented x3 Resp Effort & Inspection: normal respiratory effort Auscultation: clear to auscultation bilaterally Cardio Rate: regular rate Rhythm: regular rhythm Heart Sounds: no murmurs GI Inspection: non-distended Palpation: soft, nontender Assessment & Plan Problems 1. Esophageal dysphagia R13.10 Plan Patient is having dysphagia. I sent her for an upper GI and it showed that liquids got through and cleared into the small bowel. The barium tablet did stick at the fundoplication. I recommend EGD with possible dilation. I explained the procedure in detail as well as the risks of dilation. I explained the risks of bleeding, infection, perforation of the esophagus. The patient does not have any reflux but she is also experiencing epigastric pain and bloating. This could be gas bloat syndrome or could be irritation of the stomach and gastritis. She does have a history of peptic ulcer disease. I have advised her to resume her Nexium until EGD can be performed. Jamar Madrigal MD Pager: [facility] [address] [place] [address], [address] [place] [address] Office: Orders Orders: Upper GI w/BA Swallow Today R13.10 EGD Today R13.10 Coding Level of Care Code Global Post Op Diagnoses Esophageal dysphagia R13.10 ??Dysphagia type: esophageal phase 02/04/19 1426 <Electronically signed by Jamar escobar MD> Date _ Jamar Madrigal MD I have re-examined the patient. There are no clinical changes since date of exam.
[2019-02-13 08:20] LABS: Internal QC Validated? YES +Cl - CLEAR BKGD
[2019-02-13 08:21] LABS: Pregnancy, Urine Negative Negative
[2019-02-13 08:25] VITALS: BP 114/75; PULSE 52; RESP 16; TEMP 36.9; O2SAT 99; BMI 22.7
[2019-02-13] MEDS: Lactated Ringers 1,000 ML 100 ML IV (08:51)
[2019-02-13 09:34] VITALS: BP 114/75; BP 89/54; PULSE 67; RESP 16; TEMP 35.8; O2SAT 97
--- NOTE | 2019-02-13 09:39 | OP.ENDO_ITS ---
02/13/2019 Loretta Camacho Do Re : Upper GI endoscopy procedure for Mari Jarrell Dear Janice This procedure was performed on Wednesday, February 13, 2019. My impressions and recommendations are as follows: Impressions : - Dilation performed at the gastroesophageal junction. - No specimens collected. Recommendations : - Discharge patient to home. - Resume previous diet. - Continue present medications. My findings are described in the full procedure note, which is enclosed. If I can be of further assistance, please feel free to contact me at Doctor phone number(s): , Work: . Sincerely, Jamar Madrigal MD 02/13/2019 9:38:56 AM This report has been signed electronically.
[2019-02-13 09:40] VITALS: BP 114/75; BP 95/62; PULSE 67; RESP 16; O2SAT 99
[2019-02-13 09:45] VITALS: BP 114/75; BP 94/66; PULSE 78; RESP 16; O2SAT 100
[2019-02-13 09:54] VITALS: BP 100/70; BP 114/75; PULSE 67; RESP 16; TEMP 35.7; O2SAT 96
[2019-02-13 10:25] VITALS: BP 114/75
== END 2019-02-13 10:25 | disposition home or self-care (01) ==
LOC: EN 08:03 → AC 08:04
PROVIDERS: Anesthesiology; Family Provider Family Medicine; PCP Family Medicine; Referring Provider Family Medicine; Visit Provider Surgery
PROC: 0DJ08ZZ Inspection of Upper Intestinal Tract, Via Natural or Artificial Opening Endoscopic (ICD-10-PCS; CPT 43235; principal; 2019-02-13 08:55)
DX: R13.10 Dysphagia, unspecified (principal); E78.5 Hyperlipidemia, unspecified; F32.9 Major depressive disorder, single episode, unspecified; M79.7 Fibromyalgia; K21.9 Gastro-esophageal reflux disease without esophagitis; E03.9 Hypothyroidism, unspecified; Z87.11 Personal history of peptic ulcer disease; Z87.891 Personal history of nicotine dependence; Z88.0 Allergy status to penicillin
CPT/HCPCS: 43249; 81025; J7120; J2405

== ENCOUNTER → 2020-01-26 14:49 | Outpatient (CLI) | payer MEDICAID, SELFPAY ==
[2020-01-26 08:19] VITALS: BMI 22.7
== END ==
PROVIDERS: PCP Family Medicine; Referring Provider Surgery; Visit Provider Surgery
DX: R19.7 Diarrhea, unspecified (principal)
CPT/HCPCS: 83630; 87506

== ENCOUNTER → 2020-02-02 08:00 | Outpatient (CLI) | payer MEDICAID, SELFPAY ==
[2020-01-26 08:19] VITALS: BMI 22.7
--- NOTE | 2020-02-02 08:04 | CT_ITS ---
STUDY: CT ABDOMEN AND PELVIS WITH CONTRAST REASON FOR EXAM: Female, 54 years old. ABD PAIN, CALCULUS OF KIDNEY, LT SIDED FLANK PAIN, DIARRHEA, NISSIN FUNDAPLICATION FOR HERNIA, APPY, OVARIAN CYST, [place] SURG RADIATION DOSAGE (If Supplied By Facility): CTDIvol = ( 10.81 ) mGy, DLP = ( 965.89 ) mGycm TECHNIQUE: Transaxial images were obtained from the dome of the diaphragm to the symphysis pubis with oral contrast. Oral and amp; IV Readi-CAT and amp; 100mL Isovue-300 was administered. Sagittal and coronal images were reconstructed. Individualized dose optimization techniques were used for this CT. COMPARISON: None. FINDINGS: The visualized lung bases are unremarkable. The visualized portions of the heart are within normal limits. There is decreased attenuation of the liver consistent with steatosis. Normal gallbladder and extrahepatic biliary system. Normal spleen. Normal pancreas. Normal bilateral adrenal glands. Normal right kidney. There is a 4.6 cm x 3.9 cm x 5.2 cm cyst in the upper midportion of the left kidney. Normal visualized stomach. Normal small intestine. A large amount of fecal material is seen in the colon. The patient is status post cholecystectomy. Normal abdominal aorta. Normal inferior vena cava. Normal retroperitoneum. Normal urinary bladder. A dominant follicle is seen in the right ovary. This measures 1.4 cm. Normal abdominal wall. Loss of the normal lumbar lordosis. CT/Abdomen/Pelvis WITH Contrast IMPRESSION: 4.6 cm x 3.9 cm x 5.2 cm cyst in the left kidney. Fatty infiltration of the liver. Small follicle in the right ovary. Electronically Signed: Oleg Maddox, at 9:00 EDT , Service support ,
== END ==
PROVIDERS: PCP Family Medicine; Referring Provider Urology; Visit Provider Urology
DX: N20.0 Calculus of kidney (principal)
CPT/HCPCS: 74177; Q9967

== ENCOUNTER 2020-02-05 07:31 | Day surgery (SDC) | payer MEDICAID, SELFPAY ==
[2020-01-26 08:19] VITALS: BMI 22.7
[2020-02-05] VITALS (9 sets, daily range): BP systolic 79–95; BP diastolic 45–67; PULSE 47–77; RESP 14–16; TEMP 36.2–36.8; O2SAT 95–100; BMI 24.5
--- NOTE | 2020-02-05 | COLBX_PTH ---
PATIENT: BRAD PROCTOR LOC: EN U#:[id number] AGE/SX: 54/F ROOM: RE02/05/[address]: Dr. Indio Zarco MD : [id number] BED: DIS: 02/05/2020 SPEC #: [id number] RECD: 02/05/20 13:45 STATUS: JOSE RECaroline #: [id number] LOUIS: 02/05/20 00:[address]: Indio Zarco DEPT: SURGICAL PATHOLOGY RECD BY: Dylan Leyva ENTERED: 02/05/20 13:46 SP TYPE: COLON BX OTHR DR: MD Dr. Loretta Lima DO Tissues: COLON BIOPSY Procedures: Surgery Specimen Level IV HEADER OPERATION: Colonoscopy (MAC) PRE-OP DIAGNOSIS: Diarrhea; flank pain TISSUE SUBMITTED: Random colon biopsies MICROSCOPIC DIAGNOSIS Colon, random biopsy: Fragments of colonic mucosa, no pathologic diagnosis. SJ:ina 02/08/20 MICROSCOPIC DESCRIPTION Slides are reviewed. GROSS DESCRIPTION Received in fixative is one container labeled with the patient's name and designated random colon biopsy. The specimen consists of multiple irregular fragments of light roca soft tissue that in aggregate measure 2 x 0.8 x 0.1 cm. The specimen is totally submitted in one cassette. / AM:ina 02/05/20 TC:4 CPT: 13263
[2020-02-05 08:00] LABS: Internal QC Validated? YES +Cl - CLEAR BKGD; Pregnancy, Urine Negative Negative
[2020-02-05] MEDS: Lactated Ringers 1,000 ML 100 ML IV (08:01)
--- NOTE | 2020-02-05 08:33 | HP.PCM_ITS ---
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 Accompanied by: Is patient in pain?: Yes Allergies Penicillins Allergy (Verified 01/26/20 08:19) rash Medications levothyroxine 25 mcg tablet 25 mcg PO QDAY tab 09/10/17 [History Confirmed 01/26/20] sumatriptan succinate 100 mg tablet 100 mg PO ONCE PRN 09/10/17 [History Confirmed 01/26/20] Medroxyprogesterone Acetate [Provera] 10 mg PO DAILY 12/29/18 [History Confirmed 01/26/20] Esomeprazole Mag Trihydrate [Nexium] 40 mg PO DAILY 02/10/19 [History Confirmed 01/26/20] [facility] Medical History Chest pain (Acute) Abnormal cardiovascular stress test (Acute) Hyperlipidemia (Chronic) Abdominal pain (Acute) Nausea (Acute) Depression (Chronic) Fibromyalgia (Chronic) GERD (gastroesophageal reflux disease) (Chronic) Hiatal hernia (Chronic) History of ETOH abuse (Chronic) Hypothyroidism (Chronic) IBS (irritable bowel syndrome) (Chronic) Kidney stones (Chronic) Migraine (Chronic) Rosacea (Chronic) Surgical History H/O right heart catheterization (Acute) History of esophagogastroduodenoscopy (EGD) (Acute) Status post laparoscopic Yanna fundoplication (Acute) History of appendectomy (Chronic) History of ovarian cystectomy (Chronic) kidney stone removal (Chronic) right shoulder surgery (Chronic) Family History Father CAD (coronary artery disease) Myocardial infarction [place] age 68 Brother Kidney disease renal cancer Cancer Mother Cancer Hypertension Social History (Updated 01/26/20 @ 16:[address] Indio Zarco MD) Smoking Status: Former smoker quit date: 06/10/15 pack-years: 2 alcohol intake: former year quit: 2016 HPI HPI HPI: BRAD PROCTOR, is a 54 F who presents to the office today for surgical consultation regarding left flank pain and intermittent diarrhea. The patient is referred by Dr. Jung and a written compromise surgical consult recommendations will be returned to her. The patient claims that she has been having problems with left flank pain and pressure and ache which then stimulates onset of nausea. She has not noticed any bright red blood per rectum or or melena. She states that she has had a previous history of gallstones and she still has her gallbladder in place. At the [facility] on September 26, 2017 a right upper quadrant ultrasound showed a normal distended gallbladder. Gallbladder wall was normal. There was no pericholecystic fluid. There is a solitary 1.3 x 1 cm gallstone at that time. It is of additional note that January 05, 2019 Dr. Jamar Madrigal performed a laparoscopic hiatal hernia repair with a toupet fundoplication. The patient did require an upper endoscopy postoperatively but no stricturing was identified. In her work-up she had some mild gastritis preoperatively but H. pylori was negative. Apparently she did require a postoperative upper endoscopy because of dysphasia symptoms but no clinically significant stenosis was identified. She is not currently complaining of any reflux symptoms. Her antacid and reflux med ication requirements have dropped significantly. She denies any hematuria. She states that she has had a remote history of a kidney stone and was thinking this pain was similar however she has been evaluated by urologist Dr. Easley and no clinically significant stone was identified. Dr. Gagandeep Jiang remotely on February 20, 2016 performed a colonoscopy. There was redundancy of the colon with thick liquid throughout. Question whether the patient had constipation issues and recommended MiraLAX. During the interview it became apparent that the patient is also concerned about intermittent bouts of severe diarrhea. She is concerned about weight loss. It comes to fact that there is a family history significant for renal cell carcinoma and adenocarcinoma of undetermined etiology. She is not describing postprandial right upper quadrant pain. It appears that the pain stimulates nausea and then seems to stimulate diarrhea. As of September 09, 2019 at [facility] she had BUN of 14 a creatinine 0.91. Total protein was 7.4 with an albumin of 4.2. Total bilirubin 0.4. Alkaline phosphatase 58. AST 15. ALT 29. Amylase level 78. Lipase little 108. All of those were normal. The patient states that she did have a urinalysis checked and that she was told that was not remarkable. Finally at [facility] on December 28 [address] she had a noncontrasted CT scan of the abdomen and pelvis. There is no evidence for stone disease or obstructive uropathy. No acute findings were identified. HPI HPI HPI: BRAD PROCTOR, is a 54 F who presents to the office today for ROS General General: Yes weight change and fatigue; no appetite, colon cancer, breast cancer or weakness HEENT HEENT: No difficulty swallowing, eye injury, eye surgery, swollen glands or hoarseness Endo Endocrine: Yes thyroid disease; no diabetes mellitus, thyroid cancer, Hair loss, heat intolerance or cold intolerance Skin Skin: No rash or changing moles Breast Breast: No left breast lump, right breast lump, nipple discharge, breast pain, abnormal mammogram, abnormal US or breast enlargement Musc Musculoskeletal: Yes arthritis; no back problems, rheumatoid arthritis, gout or joint pain Cardio Cardiovascular: No murmur, pacemaker, heart disease, atrial fibrillation, high blood pressure, heart attack, heart stent, palpitations, shortness of breat with exertion or chest pain Psych Psychiatric: Yes anxiety; no depression or hearing voices Resp Respiratory: No shortness of breath, No sleep apnea, No cough, No COPD, No asthma, No emphysema, No wheezing Gastro Gastrointestinal: Yes abdominal pain, Yes nausea or vomiting, Yes diarrhea, Yes constipation, No blood in stool, No acid reflux, Yes hemorrhoids, No ulcers, No gallbladder problem, No black,tarry stools Mikal Hematologic: No blood thinners, No blood disorders, No bleeding, No anemia, No blood clots Neuro Neurologic: No system reviewed and no additional complaints, except as docu, No as per HPI, No abnormal walking, No abnormal hearing, No abnormal movements, No abnormal speech, No behavioral changes, No burning sensations, No confusion, No seizure-like activity, No unsteadiness, No dizziness, No localized weakness, No frequent falls, No headache(s), No lack of coordination, No loss of vision, No memory loss, No numbness, No other visual disturbances, No radiating pain, No restless legs, No sensory deficit, No fainting, No tingling, No tremor(s), No weakness, No other Exam Const General: cooperative, healthy appearing, comfortable, no acute distress Nutritional Appearance: average body habitus Orientation: alert, awake [facility] Head: normal to inspection Eyes General: appearance normal, both eyes and all related structures Chest Breast Palpation: No nipple discharge Resp Effort & Inspection: normal respiratory effort Auscultation: clear to auscultation bilaterally Cardio Rate: regular rate Rhythm: regular rhythm Heart Sounds: no murmurs GI Palpation: soft, no hepatosplenomegaly Auscultation: normal bowel sounds Other: Slight tenderness to palpation bilateral upper quadrants with immediate reflux to her stimulating mild nausea. No mass, no rebound, not distended Other: No gross inguinal defects Skin General: no rashes or lesions noted Neuro Cognition: normal cognition Extrem General: no calf tenderness Psych Affect: normal affect Assessment & Plan Problems 1. Flank pain R10.9 2. Nausea R11.0 3. Diarrhea, unspecified type R19.7 Plan 54-year-old female with a variety concerns. She has left flank pressure and pain. She is very concerned that this might represent carcinoma of undetermined etiology or left renal cell carcinoma. She states it was mentioned to her in the past pursuing a contrasted CT. I do believe it is reasonable to do that. She has ongoing bouts of nausea. On her abdominal exam even on light palpation that seems to elicit a nausea response. Do not have an etiology to that phenomena. Finally the patient is been having intermittent bouts of diarrhea. No documented bright red blood per rectum or melena. I believe that it is very reasonable to obtain stool for analysis. I think it is additional reasonable to offer her a colonoscopy with anticipated random biopsies inspecting for possible microcytic colitis. She is aware of technique, benefit, risk, alternatives. We will schedule and proceed at her discretion. If this exam is not remarkable then potentially her symptoms can be attributed to IBS. As noted in the history physical the patient does have a gallstone in place. This would be odd to present with left flank pain but not impossible. At this point I am not sure that laparoscopic removal will improve or hinder her current set of symptoms. I appreciate the opportunity of assisting with her surgical care Copy: Dr. Lakshmi Jung and Dr. Shannon Zarco M.D., F.A.C.S. Orders Orders: Colonoscopy Today Abdomen/Pelvis WITH Contrast Today R10.9, R19.7 ENTERIC PATHOGEN PANEL STOOL Today R19.7 Stool Lactoferrin/WBC Today R19.7 Coding Level of Care Code 32873 Diagnoses Flank pain R10.9 Nausea R11.0 Diarrhea, unspecified type R19.7 ??Diarrhea type: unspecified type I have re-examined the patient. There are no clinical changes since date of exam. Procedure Criteria Procedure Type: Elective COVID Risk Discussion: The surgeon/proceduralist and patient have discussed in detail the risk of exposure to and/or potential harm posed by the COVID-19 virus with having a surgery/procedure at this time versus the risk of delaying the surgery/procedure. It is not possible to know either the risk of delaying the surgery or procedure or chance of getting an infection with perfect accuracy, but a joint decision was made between the patient and the surgeon/proceduralist to proceed at this time with the scheduled surgery/procedure as indicated on the consent form.
--- NOTE | 2020-02-05 09:04 | OP.CCLET_ITS ---
02/05/2020 Loretta Camacho Do Re : Colonoscopy procedure for Mari Jarrell Dear Janice This procedure was performed on Wednesday, February 05, 2020. My impressions and recommendations are as follows: Impressions : - Hemorrhoids found on perianal exam. - Diverticulosis in the sigmoid colon. Biopsied. - The examination was otherwise normal. Recommendations : - Discharge patient to home. - Resume previous diet. - Continue present medications. - Telephone my office for pathology results in 1 week. - Repeat colonoscopy in 10 years for screening purposes. May schedule an office appt. to discuss gallstone please My findings are described in the full procedure note, which is enclosed. If I can be of further assistance, please feel free to contact me at Doctor phone number(s): Work: . Sincerely, Indio Zarco MD 02/05/2020 9:03:45 AM This report has been signed electronically.
--- NOTE | 2020-02-05 09:04 | OP.COLON_ITS ---
Patient Name: Mari Jarrell Procedure Date: 02/05/2020 8:39 AM Date of : 1965 Age: 54 Procedure: Colonoscopy Indications: Clinically significant diarrhea of unexplained origin Providers: Indio Zarco MD Referring MD: Loretta Camacho Do Medicines: See the Anesthesia note for documentation of the administered medications Patient Profile: Last Colonoscopy: February 2016. Complications: No immediate complications. Procedure: Pre-Anesthesia Assessment: - Prior to the procedure, a History and Physical was performed, and patient medications and allergies were reviewed. The patient's tolerance of previous anesthesia was also reviewed. The risks and benefits of the procedure and the sedation options and risks were discussed with the patient. All questions were answered, and informed consent was obtained. Prior Anticoagulants: The patient has taken no previous anticoagulant or antiplatelet agents. ASA Grade Assessment: II - A patient with mild systemic disease. After reviewing the risks and benefits, the patient was deemed in satisfactory condition to undergo the procedure. After I obtained informed consent, the scope was passed under direct vision. Throughout the procedure, the patient's blood pressure, pulse, and oxygen saturations were monitored continuously. The pediatric colonoscope was introduced through the anus and advanced to the cecum, identified by appendiceal orifice and ileocecal valve. The colonoscopy was somewhat difficult due to a tortuous colon. Successful completion of the procedure was aided by applying abdominal pressure. The patient tolerated the procedure well. The quality of the bowel preparation was good. Scope In: 8:42:10 AM Scope Withdrawal Time 0 hours 7 minutes 54 seconds Scope Out: 8:57:46 AM Total Procedure Duration Time 0 hours 15 minutes 36 seconds Findings: Hemorrhoids were found on perianal exam. Scattered diverticula were found in the sigmoid colon. Biopsies for histology were taken with a cold forceps from the entire colon for evaluation of microscopic colitis. The exam was otherwise without abnormality. Impression: - Hemorrhoids found on perianal exam. - Diverticulosis in the sigmoid colon. Biopsied. - The examination was otherwise normal. Recommendation: - Discharge patient to home. - Resume previous diet. - Continue present medications. - Telephone my office for pathology results in 1 week. - Repeat colonoscopy in 10 years for screening purposes. May schedule an office appt. to discuss gallstone please Procedure Code(s): --- Professional --- 19898, Colonoscopy, flexible; with biopsy, single or multiple Diagnosis Code(s): --- Professional --- K64.9, Unspecified hemorrhoids R19.7, Diarrhea, unspecified K57.30, Diverticulosis of large intestine without perforation or abscess without bleeding CPT copyright 2017 [employer]. All rights reserved. The codes documented in this report are preliminary and upon sales clerk food review may be revised to meet current compliance requirements. Indio Zarco MD 02/05/2020 9:03:45 AM This report has been signed electronically. Number of Addenda: 0 Note Initiated On: 02/05/2020 8:39 AM
== END 2020-02-05 10:13 | disposition home or self-care (01) ==
LOC: EN 07:31 → AC 07:32
PROVIDERS: Anesthesiology; PCP Family Medicine; Referring Provider Family Medicine; Visit Provider Surgery
PROC: 0DJD8ZZ Inspection of Lower Intestinal Tract, Via Natural or Artificial Opening Endoscopic (ICD-10-PCS; CPT 45378; principal; 2020-02-05 08:25)
DX: K64.9 Unspecified hemorrhoids (principal); K57.30 Diverticulosis of large intestine without perforation or abscess without bleeding; Z87.442 Personal history of urinary calculi; Z87.891 Personal history of nicotine dependence; Z88.0 Allergy status to penicillin; F32.9 Major depressive disorder, single episode, unspecified; K21.9 Gastro-esophageal reflux disease without esophagitis; E78.5 Hyperlipidemia, unspecified; E03.9 Hypothyroidism, unspecified; K58.0 Irritable bowel syndrome with diarrhea
CPT/HCPCS: 45380; 81025; 87635; 88305; 94799; J7120; J2405; U0003

== ENCOUNTER 2020-03-11 05:27 | Day surgery (SDC) | payer MEDICAID, SELFPAY ==
[2020-02-18 07:38] VITALS: BMI 24.6
--- NOTE | 2020-03-04 13:58 | EKG12_ITS ---
Test Reason : PRE OP Blood Pressure : / mmHG Vent. Rate : 081 BPM Atrial Rate : 081 BPM P-R Int : 158 ms QRS Dur : 096 ms QT Int : 400 ms P-R-T Axes : 042 -58 061 degrees QTc Int : 464 ms Normal sinus rhythm Left axis deviation Abnormal ECG Confirmed by ASHLEY LUNDBERG, ANUPAM ([id number]), design editor JOHANNY MONZON ([id number]) on 03/08/2020 11:29:57 AM Referred By: Indio Zarco Confirmed By:ANUPAM RAMIREZ MD
[2020-03-04 15:23] LABS: Thyroid Stim Hormone (TSH) 3.42 uIU/mL (0.358-3.74)
[2020-03-11] VITALS (10 sets, daily range): BP systolic 97–113; BP diastolic 66–78; PULSE 53–76; RESP 14–16; TEMP 36.1–36.9; O2SAT 96–99; BMI 25.4
--- NOTE | 2020-03-11 05:41 | HP.PCM_ITS ---
Problem List (1) Cholelithiasis with chronic cholecystitis Status: Chronic Qualifiers: (2) Epigastric pain Status: Acute (3) Flank pain Status: Acute History and Physical Date of Admission: 03/11/20 Intake Visit Reasons: gallstone Chief Complaint: nausea/Abdominal pain Waste Handling Technician Required: No Is patient in pain?: Yes Allergies Penicillins Allergy (Verified 02/18/20 07:40) rash Medications levothyroxine 25 mcg tablet 25 mcg PO QDAY tab 09/10/17 [History Confirmed 02/18/20] sumatriptan succinate 100 mg tablet 100 mg PO ONCE PRN 09/10/17 [History Confirmed 02/18/20] cholecalciferol (vitamin D3) 10 mcg (400 unit) tablet 10 mcg PO DAILY 02/18/20 [History Confirmed 02/18/20] multivitamin 1 tab PO DAILY 02/18/20 [History Confirmed 02/18/20] omega-3 fatty acids 1,000 mg capsule 1,000 mg PO DAILY 02/18/20 [History Confirmed 02/18/20] [facility] Medical History Diarrhea (Acute) Nausea (Acute) Flank pain (Acute) Hiatal hernia (Acute) GERD (gastroesophageal reflux disease) (Acute) Dysphagia (Acute) Epigastric pain (Acute) Chest pain (Acute) Abnormal cardiovascular stress test (Acute) Hyperlipidemia (Chronic) Abdominal pain (Acute) Nausea (Acute) Depression (Chronic) Fibromyalgia (Chronic) GERD (gastroesophageal reflux disease) (Chronic) Hiatal hernia (Chronic) History of ETOH abuse (Chronic) Hypothyroidism (Chronic) IBS (irritable bowel syndrome) (Chronic) Kidney stones (Chronic) Migraine (Chronic) Rosacea (Chronic) Surgical History H/O right heart catheterization (Acute) History of esophagogastroduodenoscopy (EGD) (Acute) Status post laparoscopic Yanna fundoplication (Acute) History of appendectomy (Chronic) History of ovarian cystectomy (Chronic) kidney stone removal (Chronic) right shoulder surgery (Chronic) Family History Father CAD (coronary artery disease) Myocardial infarction [place] age 68 Brother Kidney disease renal cancer Cancer Mother Cancer Hypertension Social History (Updated 02/18/20 @ 07:[address] Indio Zarco MD) Smoking Status: Former smoker quit date: 06/10/15 pack-years: 2 alcohol intake: former year quit: 2016 HPI HPI HPI: MARI JARRELL, is a 54 F who presents to the office today for surgical follow-up of left upper quadrant abdominal pain and diarrhea. Testing below reflects stool analysis unremarkable. Colonoscopy unremarkable with random biopsies normal. CT scan without demonstration of a clinically significant finding. She does have a known previous history of her gallbladder ultrasound de monstrating a dominant gallstone. Today was review of all of the current findings. She is still having intermittent left upper quadrant abdominal pain. Next RUN DATE: 02/18/20 [facility], DEPARTMENT OF LABORATORIES PAGE 1 RUN TIME: 632 Specimen Inquiry [address], [place], [place], [id number] PATIENT: MARI JARRELL LOC: LABSPEC U #: [id number] : 1965 AGE/SX: 54/F FACILITY: [facility] ROOM: RE01/26/[address]: Dr. Indio Zarco MD STATUS:REG CLI BED: DIS: ~ SPEC #: [id number] __ [place]: 01/26/20 STATUS: COMP REQ #: [id number] SOURCE: Stool RECD: 01/26/20-[address]: Dr. Indio Zarco MD SPSESC: ENTR: 01/26/20-1455 [facility] DR: Dr. Loretta Camacho, DO ~ ORDERED: Stool Lacto/WBC, EP PANEL STOOL COMMENTS: Reason for Exam: diarrhea Procedure Result Verified Stool Lactoferrin/WBC Final 01/26/20-1602 Fecal WBC Lactoferrin Negative: No Fecal WBC Lactoferrin present ENTERIC PATHOGEN PANEL STOOL Final 01/27/20-1402 CAMPYLOBACTER Not Detected Salmonella Not Detected Shigella sp. Not Detected Shiga Toxin Not Detected Yersinia Not Detected VIBRIO Not Detected Norovirus Not Detected Rotavirus Not Detected Normal Reference Range = Not Detected Nucleic acid amplification test method Not detected for Campylobacter group, Salmonella species, Shigella species, Vibrio Group, Yersinia enterocolitica, EHEC (Shiga Toxin 1, Shiga Toxin 2), Norovirus Gl/Gll, and Rotavirus A. Other common stool pathogens are not detected on this panel include: Aeromonas/Plesiomonas or parasites. Order testing for these organisms separately if suspected. This is an amplified DNA test which makes it both specific and sensitive. [facility] Imaging Services [address] [place] [address] Abdomen/Pelvis WITH Contrast MR#: [id number] Name: MARI JARRELL #:[id number] : 1965F 54 From: Oleg Maddox MD PCP:Dr. Loretta Camacho, Status:REG CLI Study:Abdomen/Pelvis WITH Contrast Date of Exam:02/02/20 Exam#[id number] Ordering Dr: Shannon Easley MD STUDY: CT ABDOMEN AND PELVIS WITH CONTRAST REASON FOR EXAM: Female, 54 years old. ABD PAIN, CALCULUS OF KIDNEY, LT SIDED FLANK PAIN, DIARRHEA, NISSIN FUNDAPLICATION FOR HERNIA, APPY, OVARIAN CYST, KS SURG RADIATION DOSAGE (If Supplied By Facility): CTDIvol = ( 10.81 ) mGy, DLP = ( 965.89 ) mGycm TECHNIQUE: Transaxial images were obtained from the dome of the diaphragm to the symphysis pubis with oral contrast. Oral and amp; IV Readi-CAT and amp; 100mL Isovue-300 was administered. Sagittal and coronal images were reconstructed. Individualized dose optimization techniques were used for this CT. COMPARISON: None. FINDINGS: The visualized lung bases are unremarkable. The visualized portions of the heart are within normal limits. There is decreased attenuation of the liver consistent with steatosis. Normal gallbladder and extrahepatic biliary system. Normal spleen. Normal pancreas. Normal bilateral adrenal glands. Normal right kidney. There is a 4.6 cm x 3.9 cm x 5.2 cm cyst in the upper midportion of the left kidney. Normal visualized stomach. Normal small intestine. A large amount of fecal material is seen in the colon. The patient is status post cholecystectomy. Normal abdominal aorta. Normal inferior vena cava. Normal retroperitoneum. Normal urinary bladder. A dominant follicle is seen in the right ovary. This measures 1.4 cm. Normal abdominal wall. Loss of the normal lumbar lordosis. CT/Abdomen/Pelvis WITH Contrast IMPRESSION: 4.6 cm x 3.9 cm x 5.2 cm cyst in the left kidney. Fatty infiltration of the liver. Small follicle in the right ovary. Electronically Signed: Oleg Indiodoreenhilda, at 9:00 EDT , Service support , February 05, 2020 random colonic biopsies normal tissue [facility] Medical Records Department [address] [place] [address] Colonoscopy Report MR#: [id number] Name:MARI JARRELL #:[id number] : 1965 54From: Indio Zarco MD PCP:Dr. Loretta Camacho DO Status:[facility] Patient Name: Mari Jarrell Procedure Date: 02/05/2020 8:39 AM Date of : 1965 Age: 54 Procedure: Colonoscopy Indications: Clinically significant diarrhea of unexplained origin Providers: Indio Zarco MD Referring MD: Loretta Camacho Do Medicines: See the Anesthesia note for documentation of the administered medications Patient Profile: Last Colonoscopy: February 2016. Complications: No immediate complications. Procedure: Pre-Anesthesia Assessment: - Prior to the procedure, a History and Physical was performed, and patient medications and allergies were reviewed. The patient's tolerance of previous anesthesia was also reviewed. The risks and benefits of the procedure and the sedation options and risks were discussed with the patient. All questions were answered, and informed consent was obtained. Prior Anticoagulants: The patient has taken no previous anticoagulant or antiplatelet agents. ASA Grade Assessment: II - A patient with mild systemic disease. After reviewing the risks and benefits, the patient was deemed in satisfactory condition to undergo the procedure. After I obtained informed consent, the scope was passed under direct vision. Throughout the procedure, the patient's blood pressure, pulse, and oxygen saturations were monitored continuously. The pediatric colonoscope was introduced through the anus and advanced to the cecum, identified by appendiceal orifice and ileocecal valve. The colonoscopy was somewhat difficult due to a tortuous colon. Successful completion of the procedure was aided by applying abdominal pressure. The patient tolerated the procedure well. The quality of the bowel preparation was good. Scope In: 8:42:10 AM Scope Withdrawal Time 0 hours 7 minutes 54 seconds Scope Out: 8:57:46 AM Total Procedure Duration Time 0 hours 15 minutes 36 seconds Findings: Hemorrhoids were found on perianal exam. Scattered diverticula were found in the sigmoid colon. Biopsies for histology were taken with a cold forceps from the entire colon for evaluation of microscopic colitis. The exam was otherwise without abnormality. Impression: - Hemorrhoids found on perianal exam. - Diverticulosis in the sigmoid colon. Biopsied. - The examination was otherwise normal. Recommendation: - Discharge patient to home. - Resume previous diet. - Continue present medications. - Telephone my office for pathology results in 1 week. - Repeat colonoscopy in 10 years for screening purposes. May schedule an office appt. to discuss gallstone please Procedure Code(s): --- Professional --- 31430, Colonoscopy, flexible; with biopsy, single or multiple Diagnosis Code(s): --- Professional --- K64.9, Unspecified hemorrhoids R19.7, Diarrhea, unspecified K57.30, Diverticulosis of large intestine without perforation or abscess without bleeding CPT copyright 2017 [employer]. All rights reserved. The codes documented in this report are preliminary and upon kiln head house operator review may be revised to meet current compliance requirements. Indio Zarco MD 02/05/2020 9:03:45 AM This report has been signed electronically. Number of Addenda: 0 Note Initiated On: 02/05/2020 8:39 AM 02/05/20 0903 Date Indio Zarco MD Intake Visit Reasons: NAUSEA, ABDOMINAL PAIN Chief Complaint: nausea/Abdominal pain Waste Handling Technician Required: No Accompanied by: Is patient in pain?: Yes Allergies Penicillins Allergy (Verified 01/26/20 08:19) rash Medications levothyroxine 25 mcg tablet 25 mcg PO QDAY tab 09/10/17 [History Confirmed 01/26/20] sumatriptan succinate 100 mg tablet 100 mg PO ONCE PRN 09/10/17 [History Confirmed 01/26/20] Medroxyprogesterone Acetate [Provera] 10 mg PO DAILY 12/29/18 [History Confirmed 01/26/20] Esomeprazole Mag Trihydrate [Nexium] 40 mg PO DAILY 02/10/19 [History Confirmed 01/26/20] [facility] Medical History Chest pain (Acute) Abnormal cardiovascular stress test (Acute) Hyperlipidemia (Chronic) Abdominal pain (Acute) Nausea (Acute) Depression (Chronic) Fibromyalgia (Chronic) GERD (gastroesophageal reflux disease) (Chronic) Hiatal hernia (Chronic) History of ETOH abuse (Chronic) Hypothyroidism (Chronic) IBS (irritable bowel syndrome) (Chronic) Kidney stones (Chronic) Migraine (Chronic) Rosacea (Chronic) Surgical History H/O right heart catheterization (Acute) History of esophagogastroduodenoscopy (EGD) (Acute) Status post laparoscopic Yanna fundoplication (Acute) History of appendectomy (Chronic) History of ovarian cystectomy (Chronic) kidney stone removal (Chronic) right shoulder surgery (Chronic) Family History Father CAD (coronary artery disease) Myocardial infarction [place] age 68 Brother Kidney disease renal cancer Cancer Mother Cancer Hypertension Social History (Updated 01/26/20 @ 16:[address] Indio Zarco MD) Smoking Status: Former smoker quit date: 06/10/15 pack-years: 2 alcohol intake: former year quit: 2016 HPI HPI HPI: MARI JARRELL, is a 54 F who presents to the office today for surgical consultation regarding left flank pain and intermittent diarrhea. The patient is referred by Dr. Camacho and a written compromise surgical consult recommendations will be returned to her. The patient claims that she has been having problems with left flank pain and pressure and ache which then stimulates onset of nausea. She has not noticed any bright red blood per rectum or or melena. She states that she has had a previous history of gallstones and she still has her gallbladder in place. At the [facility] on September 26, 2017 a right upper quadrant ultrasound showed a normal distended gallbladder. Gallbladder wall was normal. There was no pericholecystic fluid. There is a solitary 1.3 x 1 cm gallstone at that time. It is of additional note that January 05, 2019 Dr. Jamar Madrigal performed a laparoscopic hiatal hernia repair with a toupet fundoplication. The patient did require an upper endoscopy postoperatively but no stricturing was identified. In her work-up she had some mild gastritis preoperatively but H. pylori was negative. Apparently she did require a postoperative upper endoscopy because of dysphasia symptoms but no clinically significant stenosis was identified. She is not currently complaining of any reflux symptoms. Her antacid and reflux medication requirements have dropped significantly. She denies any hematuria. She states that she has had a remote history of a kidney stone and was thinking this pain was similar however she has been evaluated by urologist Dr. Easley and no clinically significant stone was identified. Dr. Gagandeep Jiang remotely on February 20, 2016 performed a colonoscopy. There was redundancy of the colon with thick liquid throughout. Question whether the patient had constipation issues and recommended MiraLAX. During the interview it became apparent that the patient is also concerned about intermittent bouts of severe diarrhea. She is concerned about weight loss. It comes to fact that there is a family history significant for renal cell carcinoma and adenocarcinoma of undetermined etiology. She is not describing postprandial right upper quadrant pain. It appears that the pain stimulates nausea and then seems to stimulate diarrhea. As of September 09, 2019 at [facility] she had BUN of 14 a creatinine 0.91. Total protein was 7.4 with an albumin of 4.2. Total bilirubin 0.4. Alkaline phosphatase 58. AST 15. ALT 29. Amylase level 78. Lipase little 108. All of those were normal. The patient states that she did have a urinalysis checked and that she was told that was not remarkable. Finally at [facility] on December 28 [address] she had a noncontrasted CT scan of the abdomen and pelvis. There is no evidence for stone disease or obstructive uropathy. No acute findings were identified. HPI HPI HPI: MARI JARRELL, is a 54 F who presents to the office today for ROS General General: Yes weight change and fatigue; no appetite, colon cancer, breast cancer or weakness HEENT HEENT: No difficulty swallowing, eye injury, eye surgery, swollen glands or hoarseness Endo Endocrine: Yes thyroid disease; no diabetes mellitus, thyroid cancer, Hair loss, heat intolerance or cold intolerance Skin Skin: No rash or changing moles Breast Breast: No left breast lump, right breast lump, nipple discharge, breast pain, abnormal mammogram, abnormal US or breast enlargement Musc Musculoskeletal: Yes arthritis; no back problems, rheumatoid arthritis, gout or joint pain Cardio Cardiovascular: No murmur, pacemaker, heart disease, atrial fibrillation, high blood pressure, heart attack, heart stent, palpitations, shortness of breat with exertion or chest pain Psych Psychiatric: Yes anxiety; no depression or hearing voices Resp Respiratory: No shortness of breath, No sleep apnea, No cough, No COPD, No asthma, No emphysema, No wheezing Gastro Gastrointestinal: Yes abdominal pain, Yes nausea or vomiting, Yes diarrhea, Yes constipation, No blood in stool, No acid reflux, Yes hemorrhoids, No ulcers, No gallbladder problem, No black,tarry stools Mikal Hematologic: No blood thinners, No blood disorders, No bleeding, No anemia, No blood clots Neuro Neurologic: No system reviewed and no additional complaints, except as docu, No as per HPI, No abnormal walking, No abnormal hearing, No abnormal movements, No abnormal speech, No behavioral changes, No burning sensations, No confusion, No seizure-like activity, No unsteadiness, No dizziness, No localized weakness, No frequent falls, No headache(s), No lack of coordination, No loss of vision, No memory loss, No numbness, No other visual disturbances, No radiating pain, No restless legs, No sensory deficit, No fainting, No tingling, No tremor(s), No weakness, No other Exam Const General: cooperative, healthy appearing, comfortable, no acute distress Nutritional Appearance: average body habitus Orientation: alert, awake [facility] Head: normal to inspection Eyes General: appearance normal, both eyes and all related structures Chest Breast Palpation: No nipple discharge Resp Effort & Inspection: normal respiratory effort Auscultation: clear to auscultation bilaterally Cardio Rate: regular rate Rhythm: regular rhythm Heart Sounds: no murmurs GI Palpation: soft, no hepatosplenomegaly Auscultation: normal bowel sounds Other: Slight tenderness to palpation bilateral upper quadrants with immediate reflux to her stimulating mild nausea. No mass, no rebound, not distended Other: No gross inguinal defects Skin General: no rashes or lesions noted Neuro Cognition: normal cognition Extrem General: no calf tenderness Psych Affect: normal affect Assessment & Plan Problems 1. Flank pain R10.9 2. Nausea R11.0 3. Diarrhea, unspecified type R19.7 Plan 54-year-old female with a variety concerns. She has left flank pressure and pain. She is very concerned that this might represent carcinoma of undetermined etiology or left renal cell carcinoma. She states it was mentioned to her in the past pursuing a contrasted CT. I do believe it is reasonable to do that. She has ongoing bouts of nausea. On her abdominal exam even on light palpation that seems to elicit a nausea response. Do not have an etiology to that phenomena. Finally the patient is been having intermittent bouts of diarrhea. No documented bright red blood per rectum or melena. I believe that it is very reasonable to obtain stool for analysis. I think it is additional reasonable to offer her a colonoscopy with anticipated random biopsies inspecting for possible microcytic colitis. She is aware of technique, benefit, risk, alternatives. We will schedule and proceed at her discretion. If this exam is not remarkable then potentially her symptoms can be attributed to IBS. As noted in the history physical the patient does have a gallstone in place. This would be odd to present with left flank pain but not impossible. At this point I am not sure that laparoscopic removal will improve or hinder her current set of symptoms. I appreciate the opportunity of assisting with her surgical care Copy: Dr. Lakshmi Camacho and Dr. Shannon Zarco M.D., F.A.C.S. HPI HPI HPI: MARI JARRELL, is a 54 F who presents to the office today for ROS General General: Yes weight change and fatigue; no appetite, colon cancer, breast cancer or weakness HEENT HEENT: No difficulty swallowing, eye injury, eye surgery, swollen glands or hoarseness Endo Endocrine: Yes thyroid disease; no diabetes mellitus, thyroid cancer, Hair loss, heat intolerance or cold intolerance Skin Skin: No rash or changing moles Breast Breast: No left breast lump, right breast lump, nipple discharge, breast pain, abnormal mammogram, abnormal US or breast enlargement Musc Musculoskeletal: Yes arthritis; no back problems, rheumatoid arthritis, gout or joint pain Cardio Cardiovascular: No murmur, pacemaker, heart disease, atrial fibrillation, high blood pressure, heart attack, heart stent, palpitations, shortness of breat with exertion or chest pain Psych Psychiatric: Yes anxiety; no depression or hearing voices Resp Respiratory: No shortness of breath, No sleep apnea, No cough, No COPD, No asthma, No emphysema, No wheezing Gastro Gastrointestinal: Yes abdominal pain, Yes nausea or vomiting, Yes diarrhea, Yes constipation, No blood in stool, No acid reflux, Yes hemorrhoids, No ulcers, No gallbladder problem, No black,tarry stools Mikal Hematologic: No blood thinners, No blood disorders, No bleeding, No anemia, No blood clots Neuro Neurologic: No weakness Exam Const General: cooperative, healthy appearing, comfortable, no acute distress Nutritional Appearance: average body habitus Orientation: alert, awake [facility] Head: normal to inspection Chest Breast Palpation: No nipple discharge Resp Effort & Inspection: normal respiratory effort Auscultation: clear to auscultation bilaterally Cardio Rate: regular rate Rhythm: regular rhythm Heart Sounds: no murmurs GI Palpation: soft, no hepatosplenomegaly Auscultation: normal bowel sounds Extrem General: no calf tenderness Psych Affect: normal affect Assessment & Plan Problems 1. Calculus of gallbladder with chronic cholecystitis without obstruction K80.10 2. Flank pain R10.9 Plan 54-year-old female with left upper quadrant pain. She has a dominant gallstone within the gallbladder. We had a extensive discussion today regarding laparoscopic cholecystectomy and selective cholangiography. I have suggested that on occasion gallbladder disease can present as a left upper quadrant pain though it is less common to do it in that fashion. I have discussed the technique, benefit, risk, alternatives of a laparoscopic cholecystectomy selective cholangiography. She has had an opportunity to ask and have questions answered. We will schedule and proceed at her discretion. She is aware that there are no guarantees that will this will resolve her discomfort. She is additionally aware that I do not perceive additional surgical treatment options if she continues to have discomfort post procedure. She has had an opportunity ask and have questions answered. We will schedule and proceed at her discretion. Copy: Dr. Shantelle Zarco M.D., F.A.C.S. Coding Level of Care Code Off vis,est,level 2 Diagnoses Calculus of gallbladder with chronic cholecystitis without obstruction K80.10 ??Cholelithiasis location: gallbladder ??Biliary obstruction: without biliary obstruction Flank pain R10.9 I have re-examined the patient. There are no clinical changes since date of exam. Procedure Criteria Procedure Type: Elective COVID Risk Discussion: The surgeon/proceduralist and patient have discussed in detail the risk of exposure to and/or potential harm posed by the COVID-19 virus with having a surgery/procedure at this time versus the risk of delaying the surgery/procedure. It is not possible to know either the risk of delaying the surgery or procedure or chance of getting an infection with perfect accuracy, but a joint decision was made between the patient and the surgeon/proceduralist to proceed at this time with the scheduled surgery/procedure as indicated on the consent form.
--- NOTE | 2020-03-11 05:42 | PCM.DC.GS ---
Discharge Diet: Light diet - advance as tolerated - if you have questions about your diet instructions, please talk to you doctor. Discharge Activity: May Not Drive - for 3-5 days or while taking narcotic pain medicine. May shower in (days): 1 Lifting Restrictions: 10 pounds Call your doctor if your incision/area has: Continuous Slow Oozing, Sudden Increased Bleeding, Increased Pain/ Swelling, Increased Redness, Foul Smelling Discharge Call your doctor if you observe: Fever of 101 or Higher Suture Line Care: Avoid Pulling/Pushing, Avoid Pinching/Bending Additional Dressing/Incision Instructions:: Change or remove dressing in 4 days. Leave steri-strips in place for 1 week. Allergies/Adverse Reactions: Allergies Penicillins Allergy (Verified 03/02/20 09:09) rash Medications to take at Discharge levothyroxine 25 mcg tablet 25 mcg PO QDAY tab 09/10/17 sumatriptan succinate 100 mg tablet 100 mg PO ONCE PRN 09/10/17 cholecalciferol (vitamin D3) 10 mcg (400 unit) tablet 10 mcg PO DAILY 02/18/20 multivitamin 1 tab PO DAILY 02/18/20 omega-3 fatty acids 1,000 mg capsule 1,000 mg PO DAILY 02/18/20 Orders to be completed after discharge: ,Urine Time Frame: 03/11/20, Facility: [facility], Location: Laboratory Primary Care Physician: Radha Pepper MD [Primary Care Provider] - Test Results: Test results from this visit will be discussed in further detail at your follow-up appointment, if applicable. Please Follow Up With: Indio Zarco MD - [phone] When: Office appt.: may be phone call or virtual or on-site. Approx 10days please
[2020-03-11 06:06] LABS: Internal QC Validated? YES +Cl - CLEAR BKGD; Pregnancy, Urine Negative Negative
[2020-03-11] MEDS: Lactated Ringers 1,000 ML 100 ML IV ×3 (06:09→13:17)
--- NOTE | 2020-03-11 07:30 | GALL_PTH ---
PATIENT: BRAD PROCTOR [place] [facility] [place][id number] AGE/SX: 54/F ROOM: RE03/11/[address]: Dr. Indio Zarco MD : 1965 BED: DIS: 03/11/2020 SPEC #: [id number] RECD: 03/11/20 08:57 STATUS: JOSE CARRASCO #: [id number] LOUIS: 03/11/20 07:[address]: Indio Zarco DEPT: SURGICAL PATHOLOGY RECD BY: Constanza Ledezma ENTERED: 03/11/20 09:24 SP TYPE: SANTO WARD DR: Dr. Radha Pepper MD Tissues: Gallbladder, NOS Procedures: Surgery Specimen Level III HEADER OPERATION: Laparoscopic cholecystectomy with IOC PRE-OP DIAGNOSIS: Cholelithiasis with chronic cholecystitis TISSUE SUBMITTED: Gallbladder MICROSCOPIC DIAGNOSIS Gallbladder, cholecystectomy: Chronic cholecystitis and cholelithiasis. AM:ina 03/14/20 MICROSCOPIC DESCRIPTION Slides are reviewed. GROSS DESCRIPTION Received is one container labeled with the patient's name and designated gallbladder. The specimen consists of a gallbladder measuring 7 cm in length and up to 3.5 cm in diameter. The external surface is pink-roca, smooth and glistening for the most part. Focally it is granular, hemorrhagic and contains cautery artifact. The gallbladder contains green-yellow mucoid bile and one greenish-brown ovoid stone measuring 1.7 cm in greatest dimension. The mucosa is bile-stained and without any mass lesions. The gallbladder wall measures up to 0.2 cm in thickness. Manual Equipment Mechanic sections from the gallbladder and the cystic duct are submitted in one cassette. / SJ:ina 03/11/20 TC:3 CPT: 42193
--- NOTE | 2020-03-11 07:45 | RAD_ITS ---
STUDY: INTRAOPERATIVE CHOLANGIOGRAM. REASON FOR EXAM: Female, 54 years old. Lap frandy -- abd pain. Laparoscopic cholecystectomy. FLUOROSCOPY TIME (if supplied): ( 19 seconds ) minutes/seconds. A cine loop of 68 images were submitted. TECHNIQUE: An intraoperative cholangiogram was performed by the surgeon. Imaging was submitted. COMPARISON: None. FINDINGS: The visualized intrahepatic biliary ducts are unremarkable. The common bile duct is not dilated. No intraluminal filling defects is seen. There is free flow of contrast into the duodenum. RAD/Cholangiogram/ O R,Initial IMPRESSION: Unremarkable intraoperative Cholangiogram. Electronically Signed: Oleg Maddox, at 13:55 EDT , Service support ,
[2020-03-11] MEDS: Bupivacaine Mpf 0.5% 30 ML VIAL (07:47)
--- NOTE | 2020-03-11 08:42 | OP.PCM_ITS ---
Problem List (1) Cholelithiasis with chronic cholecystitis Status: Chronic Qualifiers: (2) Epigastric pain Status: Acute (3) Flank pain Status: Acute Report of Operation Date of Procedure: 03/11/20 Pre-Operative Diagnosis: Chronic cholecystitis cholelithiasis Post-Operative Diagnosis: Same Surgery/Procedure Performed:: Laparoscopic cholecystectomy with cholangiography Description of Surgical Findings:: Timeout and informed consent was obtained. 54-year-old female was taken to the operating room and placed upon the table. Clindamycin was given intravenously. The abdomen sterilely prepped and draped. 0.5% Marcaine was used as a local anesthetic. Throughout the procedure total 30 cc was used. Skin sites. Anesthetized. A vertical infraumbilical incision was created holding sutures of 0 Vicryl placed varies needle inserted saline drop test performed the abdomen was insufflated with CO2 to a pressure of 10 mmHg pressure. 10 mm trocar was inserted. 10 mm scope inserted. No concern trocar injuries. There were adhesions of to the anterior abdominal wall of the cecum a sending colon but this appeared chronic and not inflammatory. The upper quadrant appeared unremarkable. 5 mm trochars were placed in the epigastric mid abdomen and the right upper quadrant. The gallbladder was distracted blunt dissection was instituted the infundibulum until clearly the cystic artery cystic duct identified. 2 hemo-lock clips were placed on the cystic artery proximally 1 distally prior to transecting it. Hemo-lock clip was placed on the cystic duct and through a 14-gauge Angiocath cholangiogram catheter was inserted. Fluoroscopically control cholangiograms were obtained. This demonstrated normal ductal anatomy and free flow into the small bowel. The cholangiogram catheter was removed and 2 hemo-lock clips were placed on the cystic duct stump prior to transecting it. The gallbladder dissected free of the liver bed. Additional hemo-lock clip was used for hemostasis. The gallbladder was released. The right upper quadrant was irrigated and aspirated free of excess fluid. Gallbladder was placed in a retrieval bag. The abdomen was allowed to deflate of the CO2 through an antiviral valve. Trochars were removed. The gallbladder was removed through the umbilicus. The fascia at the umbilicus was approximated up to 0 Vicryl [id number] suture. Skin edges approximated opted for Monocryl subdermal stitches. Vangie-Strips Telfa OpSite dressings applied. Sp onge and instrument and needle counts were reported to the surgeon to be correct. Blood loss minimal. Specimens gallbladder. Drains none. Blood loss minimal. Indio Zarco M.D., F.A.C.S. Type of Anesthesia:: General Anesthesiologist: Jaxson Arrington
[2020-03-11] MEDS: HYDROcodone Bitartrate/Apap 5/325 Tablet PO (10:49)
== END 2020-03-11 15:52 | disposition home or self-care (01) ==
LOC: SDC 05:27 → AC 05:28
PROVIDERS: Anesthesiology; PCP Internal Medicine; Referring Provider Surgery; Visit Provider Surgery
PROC: (CPT 47610; principal; 2020-03-11 07:10)
DX: K80.10 Calculus of gallbladder with chronic cholecystitis without obstruction (principal); Z87.891 Personal history of nicotine dependence
CPT/HCPCS: 47563; 36415; 74300; 76000; 81025; 84443; 87635; 88304; 93005; C9803; J7120; J2405; U0003

== ENCOUNTER 2020-08-23 15:49 | Outpatient (RCR) | payer MEDICAID, SELFPAY ==
[2020-03-11 05:52] VITALS: BMI 25.4
[2020-08-23] MEDS: COVID-19 VACC, MRNA(PFIZER)/PF 30 MCG/0.3 ML SYRINGE IM (14:08)
[2020-09-13] MEDS: COVID-19 VACC, MRNA(PFIZER)/PF 30 MCG/0.3 ML SYRINGE IM (14:06)
== END 2020-08-23 23:59 ==
LOC: IMMUN 15:49
PROVIDERS: PCP Internal Medicine; Visit Provider Family Medicine
DX: Z23 Encounter for immunization (principal)
CPT/HCPCS: 0001A; 0002A; 91300

== ENCOUNTER → 2020-12-26 11:07 | Outpatient (CLI) | payer MEDICAID, SELFPAY ==
[2020-03-11 05:52] VITALS: BMI 25.4
--- NOTE | 2020-12-26 12:00 | BRBX_PTH ---
PATIENT: BRAD PROCTOR LOC: [facility] U#:[id number] AGE/SX: 59/F ROOM: RE12/26/[address]: Dr. Mynor Laird MD : 1965 BED: DIS: SPEC #: [id number] RECD: 12/26/20 13:05 STATUS: JOSE DANILO #: [id number] LOUIS: 12/26/20 12:[address]: Mynor Laird DEPT: SURGICAL PATHOLOGY RECD BY: Hilary Lema ENTERED: 12/26/20 13:36 SP TYPE: BREAST BX OTHR DR: Dr. Radha Pepper MD Tissues: Right breast, NOS Procedures: Surgery Specimen Level IV HEADER OPERATION: Right breast stereotactic biopsy PRE-OP DIAGNOSIS: Right breast calcifications 12 o?clock TISSUE SUBMITTED: Right breast core tissue ISCHEMIC TIME: 2 minutes FIXATION TIME: 7.5 hours MICROSCOPIC DIAGNOSIS Right breast, stereotactic core biopsy: Fibrocystic changes and intraductal hyperplasia without atypia. Focal minimal microcalcifications. Negative for malignancy. See comment. SJ:ina 12/27/2020 COMMENT Correlation with clinical, radiologic findings and appropriate follow up are necessary. MICROSCOPIC DESCRIPTION Slides are reviewed. GROSS DESCRIPTION Received is one container labeled with the patient's name and not further designated. The specimen consists of multiple irregular and elongated fragments of yellow-roca soft tissue that in aggregate measure 4 x 3 x 0.2 cm. The specimen is totally submitted in two cassettes. / AM:ina 12/26/20 TC:5 CPT: 22179 ADDENDUM ADDENDUM ADDENDUM ADDENDUM ADDENDUM ADDENDUM ADDENDUM ADDENDUM ADDENDUM ADDENDUM 04/19/2022 10:33 ADDENDUM 04/19/2022 10:33 ADDENDUM 04/19/2022 10:33 ADDENDUM 04/19/2022 10:33 ADDENDUM 04/19/2022 10:33 This addendum is added to incorporate an outside pathology consultation report. The case was examined at [facility] (#[id number]) and the following diagnosis was rendered. Right breast, stereotactic core biopsy: Benign breast tissue with usual ductal hyperplasia and microcalcifications. Please see complete above mentioned consultation report in EMR
--- NOTE | 2020-12-27 10:44 | OP.PCM_ITS ---
Problems Associated Problem List Diagnoses (1) Microcalcification of right breast on mammogram: Report of Operation Date of Procedure: 12/26/20 Pre-Operative Diagnosis: Microcalcifications right breast Post-Operative Diagnosis: Same Surgery/Procedure Performed:: Right stereotactic breast biopsy Surgeon: Mynor Laird Type of Anesthesia: Local Description of Procedure: Patient was brought into the mammography unit. Placed in the prone position on the fissure table. Right breast was brought down through the opening. Cc view was obtained. ?15 degree views were obtained. I targeted on the microcalcifications. I prepped the breast with Betadine. I injected local. A skin winston was made. I placed a needle in the prefire positi on 2 more stereo views were obtained. I fired the needle took 360 degrees circumferential biopsies. I backed the needle off 9 mm placed a small Gelfoam titanium clip. Patient was taken out to more standard mammogram views were obtained. Sterile dressings were applied. The patient tolerated the procedure well. Admit VTE Documentation VTE Present on Admission: No VTE Pharm Prophylaxis ordered?: No Reason prophylaxis not ordered:: Treatment Not Indicated
== END ==
PROVIDERS: PCP Internal Medicine; Referring Provider Surgery; Visit Provider Surgery
DX: R92.0 Mammographic microcalcification found on diagnostic imaging of breast (principal); N62 Hypertrophy of breast
CPT/HCPCS: 19081; 88305; J7050

== ENCOUNTER 2021-08-18 12:20 | Outpatient (CLI) | payer MEDICAID, SELFPAY ==
--- NOTE | 2021-08-18 11:36 | HP.PCM_ITS ---
History and Physical Date of Admission: 08/18/21 HISTORY AND PHYSICAL - BREAST COMPLAINT ? Mari Jarrell 1965 ? ? REFERRING PHYSICIAN: Mynor Laird MD ? CHIEF COMPLAINT: Mammographic microcalcification found on diagnostic imaging of breast (primary encounter diagnosis) ? HPI: The patient is a 56 year old female with a complaint of an abnormal mammogram. The patient had a mammogram without ultrasound on 08/08/21 which demonstrated BI-RADS Category 3 right breast microcalcifications: ? ? The patient denies a history of breast masses. She does perform a self breast exam routinely. She notes no skin changes. She denies nipple discharge. She notes no axillary masses. She notes no family history of breast problems. She notes no significant breast trauma or breast difficulties in the past. ? ? ? PAST MEDICAL HISTORY PAST MEDICAL HISTORY Diagnosis Date ? Anxiety and depression 10/13/2020 ? Fatty liver ? ? GERD (gastroesophageal reflux disease) ? ? Ovarian cyst ? ? Ulcer (traumatic) of oral mucosa ? ? ? PAST SURGICAL HISTORY PAST SURGICAL HISTORY Procedure Laterality Date ? APPENDECTOMY ? ? ? BX BREAST W/DEVICE 1ST LESION STEREOTACTIC GUID Right 12/26/2020 ? COLONOSCOPY ? 02/2020 ? Dr Zarco 10 year interval ? HERNIA REPAIR HX ? ? ? LAPAROSCOPIC CHOLECYSTECTOMY ? ? ? OFFICE LEEP ? 2005 ? Dr Yang ? OVARIAN CYSTECTOMY UNI/BI ? ? ? REMOVAL OF KIDNEY STONE ? ? ? REPAIR OF SHOULDER ? CURRENT MEDICATIONS Current Outpatient Medications Medication Sig Dispense Refill ? levothyroxine (LEVOXYL) 50 mcg tablet Take 1 tablet by mouth once daily. Take on empty stomach. For Thyroid 90 tablet 3 ? cyclobenzaprine (FLEXERIL) 5 mg tablet Take 1 tablet by mouth three times daily as needed. 30 tablet 5 ? escitalopram oxalate (LEXAPRO) 10 mg tablet Take 1 tablet by mouth once daily. 30 tablet 5 ? MULTIVITAMIN ORAL Take by mouth once daily. ? docosahexaenoic acid/epa (FISH OIL ORAL) Take by mouth once daily. ? conjugated estrogens (PREMARIN) vaginal cream Use 1 g vaginally two times a week. Use 1 g vaginally every night for two weeks and then twice weekly after that 30 g 4 ? clotrimazole-betamethasone (LOTRISONE) cream Apply 1 application to affected area twice daily. (Patient taking differently: Apply 1 application to affected area as needed. ) 15 g 1 ? cholecalciferol (VITAMIN D3) 400 unit tab 1,000 Units once daily. ? polyethylene glycol 3350 (MIRALAX) 17 gram/dose powder Take 17 g by mouth once daily as needed for constipation for up to 30 doses. (Patient not taking: Reported on 08/14/2021 ) 510 g 0 ? No current facility-administered medications for this visit. ? ? ALLERGIES: Penicillins ? PERSONAL HISTORY: SOCIAL HISTORY Social History ? Tobacco Use ? Smoking status: Former Smoker ? Smokeless tobacco: Never Used Vaping Use ? Vaping Use: Never used Substance Use Topics ? 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 Drug use: Never ? FAMILY HISTORY: FAMILY HISTORY FAMILY HISTORY Problem Relation Age of Onset ? Cancer Mother 68 ? adenocarcinoma - unknown primary site ? Heart Attack Father ? ? Cancer Brother 50 ? kidney ? ? REVIEW OF SYMPTOMS: The review of systems data was entered by the nurse and reviewed by me ? Nursing Notes: Alba Mobley LPN 08/14/2021 4:14 PM Signed REVIEW OF SYSTEMS: General: The patient denies fatigue, denies weight loss, denies weight gain, denies feeling hot, and denies feelings of cold. Eyes: The patient denies glaucoma, denies eye injury/surgery, does not wear glasses or contacts. Ear/Nose/Throat: The patient notes allergies, denies hayfever, denies ear infections, and denies bloody noses. Cardiovascular: The patient denies chest pain, denies heart disease, rafael es high blood pressure,denies cardiac stent, denies prior heart attack, denies irregular heart beat, notes high cholesterol, denies poor circulation, denies heart failure, other cardiac issues, denies claudication, denies cold feet, denies peripheral arterial stent. Respiratory: The patient denies tuberculosis, denies pneumonia, denies frequent cough, denies pulmonary embolism, denies shortness of breath, and denies coughing up blood. Gastrointestinal: The patient denies difficulty swallowing, denies acid reflux, denies ulcers, denies vomiting, denies jaundice/hepatitis, denies ga llbladder problems, denies black or tarry stools, denies hemorrhoids, denies bleeding from rectum, denies diverticulitis, denies constipation, notes diarrhea, denies loss of stool control, and denies hernias. Kidney/Bladder: The patient notes kidney stones, denies urine infections, and denies bloody urine. Skin: The patient denies a history of skin cancer, denies bleeding/changing moles, and denies a history of skin rash. Neurologic: The patient denies a history of epilepsy/convulsions, denies headaches, denies head/spinal injuries, and denies stroke/TIA. Psychiatric: The patient notes psychiatric medications, notes depression, and denies voices, notes substance abuse. Endocrine: The patient notes thyroid disorders, denies diabetes, and notes hormonal problems. Hematologic: The patient denies a history of bruising, denies bleeding, and denies anemia, denies blood clots. Infections: The patient denies a history of measles and mumps, denies rheumatic fever, and denies sexually transmitted diseases. Musculoskeletal: The patient denies back pain/injury, denies back problems, denies sciatica, denies knee/foot trouble, denies arthritis, or denies gout. ? ? When was patient's last Mammogram screening? 2021 ? Last Colonoscopy: 01/2020 ? Alba Mobley LPN ? ? PHYSICAL EXAMINATION: ? General: The patient is 56 year old female, well nourished, well hydrated in no acute distress. The patient is oriented to time, place, and person. ? VITALS: Blood pressure 98/64, pulse 75, temperature 36.3 ?C (97.4 ?F), height 167.6 cm (5' 6), weight 70.3 kg (155 lb), last menstrual period 10/09/2020, SpO2 98 %. Body mass index is 25.02 kg/m?. ? HEENT: Normal cephalic, ataumatic, pupils are equally round, sclera are anicteric, mucous membranes are moist, oropharynx is clear. Neck has no masses, asymmetry or lymphadenopathy. Thyroid is unremarkable. ? Respiratory: Clear to auscultation and percussion. Normal respiratory excursion and pattern. ? Cardiac: Examination is regular rate and rhythm. ? Abdominal exam: Soft, nontender, with no palpable masses. No hepatosplenomegaly. No palpable hernias. ? Rectal exam: exam deferred Extremities: no clubbing, cyanosis or edema. No adenopathy. ? Breast: Visual inspection reveals no retractions, nipple inversion, or skin changes. Palpation of the right breast reveals no dominant or suspicious masses, but multiple benign-feeling nodules. Palpation of the left breast reveals no dominant or suspicious masses, but multiple benign-feeling nodules. Axillary exam demonstrates no suspicious masses in either the left or right axilla. There is no nipple discharge expressed from either the left or right breast. ? LABORATORY VALUES: As Noted ? RADIOLOGIC STUDIES: As Noted ? Assessment IMPRESSION: Mammographic microcalcification found on diagnostic imaging of breast (primary encounter diagnosis) ? PLAN: I plan to perform a stereotactic biopsy of the right breast. The planned surgical procedure was discussed extensively with the patient. The risks, benefits, anticipated outcomes and possible complications were mentioned. My staff has also explained the procedure in understandable terms and the patient was given the option to take printed material concerning the planned procedure. The patient had the opportunity to ask questions concerning the planned procedur e. The patient freely consents to the planned procedure. ? ? Diagnoses: (R92.0) Mammographic microcalcification found on diagnostic imaging of breast (primary encounter diagnosis) ? My findings have been communicated to Dr. Radha Pepper MD via shared medical record. This note will be forwarded to Dr. Radha Pepper MD. ? Return to Clinic: The patient is instructed to follow-up with me 1 week post operatively. ? COVID (Procedure Consent) Procedure Criteria ? Procedure Criteria: Yes Elective The surgeon/proceduralist and patient have discussed in detail the risk of exposure to and/or potential harm posed by the COVID-19 virus with having a surgery/procedure at this time versus the risk of? delaying the surgery/procedure. It is not possible to know either the risk of delaying the surgery or procedure or chance of getting an infection with perfect accuracy, but a joint decision was made between the patient and the surgeon/proceduralist ?to proceed at this time with the scheduled surgery/procedure as indicated on the consent form. ? ? Mynor Laird III, MD I have re-examined the patient. There are no clinical changes since date of exam.
--- NOTE | 2021-08-18 12:50 | BRBX_PTH ---
PATIENT: BRAD PROCTOR LOC: [facility] U#:[id number] AGE/SX: 56/F ROOM: RE08/18/[address]: Dr. Mynor Laird MD : 1965 BED: DIS: 08/18/2021 SPEC #: [id number] RECD: 08/18/21 13:57 STATUS: JOSE REQ #: [id number] LOUIS: 08/18/21 12:[address]: Mynor Laird DEPT: SURGICAL PATHOLOGY RECD BY: Hilary Lema ENTERED: 08/21/21 08:30 SP TYPE: BREAST BX OTHR DR: Dr. Radha Pepper MD Tissues: Right breast, NOS Procedures: Surgery Specimen Level IV HEADER OPERATION: Right breast stereotactic biopsy PRE-OP DIAGNOSIS: Grouped fine microcalcifications in right breast at 12 o?clock middle depth TISSUE SUBMITTED: Right breast core tissue ISCHEMIC TIME: 2 minutes FIXATION TIME: 78.5 hours MICROSCOPIC DIAGNOSIS Right breast at 12 o?clock, stereotactic core biopsy: Fibrocystic change with associated Banal microcalcifications. Intraductal papilloma. Intraductal hyperplasia without atypia. AM:ina 08/22/2021 MICROSCOPIC DESCRIPTION Slides are reviewed. GROSS DESCRIPTION Received in fixative is one container labeled with the patient's name and designated right breast. The specimen consists of multiple elongated fragments of roca-yellow fibroadipose tissue that in aggregate measure 5 x 3 x 0.3 cm. The entire specimen is submitted in two cassettes. / SJ:ina 08/21/2021 TC:5 CPT: 54333 ADDENDUM ADDENDUM ADDENDUM ADDENDUM ADDENDUM ADDENDUM ADDENDUM ADDENDUM ADDENDUM ADDENDUM ADDENDUM 04/19/2022 10:36 ADDENDUM 04/19/2022 10:36 ADDENDUM 04/19/2022 10:36 ADDENDUM 04/19/2022 10:36 ADDENDUM 04/19/2022 10:36 This addendum is added to incorporate an outside pathology consultation report. The case was examined at [facility] (#[id number]) and the following diagnosis was rendered. Right breast, 12 o?clock, stereotactic core biopsy: Intraductal papilloma. The surrounding breast tissue shows usual ductal hyperplasia with microcalcifications. Please see complete above mentioned consultation report in EMR
--- NOTE | 2021-08-18 13:18 | OP.PCM_ITS ---
Problems Associated Problem List Diagnoses (1) Microcalcification of right breast on mammogram: Report of Operation Date of Procedure: 08/18/21 Pre-Operative Diagnosis: Microcalcifications right breast Post-Operative Diagnosis: Same Surgery/Procedure Performed:: Right stereotactic breast biopsy Surgeon: Mynor Laidr shoe repairer: None Type of Anesthesia: Local Specimen's removed: Right breast biopsy Description of Procedure: Patient was brought into the mammography unit. Placed in the prone position on the fissure table. Right breast was brought down through the opening. A cc view was obtained. Microcalcifications were identified. Cluster -15 degree views were obtained. I targeted on the scalp removing the first image prepped the breast with Betadine injected local made a skin winston placed a needle in the prefire position took 2 more stereo view showing the area to be adequately targeted. Fired the needle started to take biopsies she was in some significant discomfort I ended up injecting approximately 20 cc of local and then I did biopsies at 369 and 12. X-ray my specimen miraculously microcalcifications were present. Back the needle off 7 mm placed a small Gelfoam titanium clip remove the needle and held pressure for approximately 5 minutes. I had good pneumostasis. Another film was taken showing the clip to be in good placement. She was taken out of the machine pressure was applied standard mammograms were obtained sterile dressings were applied and she tolerated the procedure well. Admit VTE Documentation VTE Present on Admission: No VTE Mechan Device Prophylaxis: None VTE Pharm Prophylaxis ordered?: No Reason prophylaxis not ordered:: Treatment Not Indicated
== END 2021-08-18 23:59 | disposition home or self-care (01) ==
LOC: BIRAD 12:20
PROVIDERS: PCP Internal Medicine; Referring Provider Surgery; Visit Provider Surgery
DX: D24.1 Benign neoplasm of right breast (principal); Z87.891 Personal history of nicotine dependence; F41.9 Anxiety disorder, unspecified; F32.A Depression, unspecified; K21.9 Gastro-esophageal reflux disease without esophagitis
CPT/HCPCS: 19081; 88305; J7050; A4648

== ENCOUNTER → 2022-12-26 | Outpatient (CLI) | payer MEDICAID, SELFPAY ==
--- NOTE | 2022-12-26 14:28 | NEURO ---
NCS and/or EMG Patient Report Ordering Doctor: Omi Blackman DATE OF SERVICE: 12/26/22 Mari presents for electrodiagnostic testing of the lower limbs. She reports pain and burning in both feet. Electrodiagnostic findings: Peroneal motor nerve demonstrates normal distal latency, amplitude and conduction velocity bilaterally. Normal peroneal and tibial F?waves. Normal H-reflex bilaterally. Sensory responses are within normal limits. Needle EMG testing showed no evidence of denervation in any muscles tested. Motor unit action potentials are of normal amplitude and duration without polyphasic activity. Electrodiagnostic assessment: This is a normal electrodiagnostic study of the lower limbs. There is no evidence for peripheral neuropathy or lumbosacral radiculopathy. If symptoms persist, may consider nerve biopsy to evaluate for small fiber neuropathy.
== END | disposition home or self-care (01) ==
LOC: PSN 07:09
PROVIDERS: Referring Provider Podiatrist Foot & Ankle Surgery; Visit Provider Podiatrist Foot & Ankle Surgery
DX: G62.9 Polyneuropathy, unspecified (principal)
CPT/HCPCS: 95886; 95911

== ENCOUNTER → 2023-09-18 | Outpatient (CLI) | payer MEDICAID, SELFPAY ==
[2023-09-18 10:25] LABS: Absolute Lymphocyte Count 1.92 X10^3/uL (0.83-4.51); Absolute Neutrophil Count 1.9 X10^3/uL (2.0-7.7); Basophil# 0.05 X10^3/uL; Basophil% 1.1 % (0-1); Eosinophil# 0.13 X10^3/uL; Hematocrit 39.5 % (37-47); Hemoglobin 12.9 g/dL (12.0-15.0); Lymphocyte # 1.92 X10^3/ul (0.83-4.51); Lymphocyte % 43.6 % (19-41); Mean Corp Hgb Conc 32.7 g/dL (32-36); Mean Corpuscular Hgb 29.4 pg (27.0-32.0); Mean Platelet Vol. 10.8 fl (6.2-12.0); Monocyte# 0.38 X10^3/uL; Monocyte% 8.6 % (0-10); NRBC Flagged by Analyzer 0 % (0-5); Neutrophil # 1.91 X10^3/uL (2.7-7.7); Neutrophil % 43.5 % (47-70); Platelet Count 300 K/mm3 (150-450); RBC Distribution Width CV 13.1 % (11.6-14.6); RBC Distribution Width SD 43.1 fl (35.1-43.9); Red Blood Count 4.39 M/mm3 (4.2-5.4); White Blood Count 4.4 K/mm3 (4.4-11.0)
[2023-09-18 10:37] LABS: ALB/GLOB Ratio 1.3 RATIO (0.9-2.4); AST(SGOT) 21 U/L (15-37); Alanine Aminotransfer ALT/SGPT 43 U/L (13-56); Albumin, Serum 3.9 g/dL (3.2-5.0); Alkaline Phosphatase 71 U/L (45-117); Anion Gap 6 (5-15); BUN 17 mg/dL (7-18); BUN/Creat Ratio 21.1 RATIO (10-20); Chloride 109 mmol/L (98-107); Cholesterol 213 mg/dL (200); EST Glomerular Filtration Rate 77 mL/min (>60); Est Glom Filt Rate - Afr Amer 94 mL/min (>60); Glucose 100 mg/dL (74-106); High Density Lipoprotein 46 mg/dL; Potassium 4.1 mmol/L (3.5-5.1); Protein, Total 6.9 g/dL (6.4-8.2); Sodium Level 138 mmol/L (136-145); Thyroid Stim Hormone (TSH) 3.44 uIU/mL (0.358-3.74); Triglycerides 120 mg/dL; Very Low Density Lipoprotein 24 mg/dL (5-40)
[2023-09-18 11:46] LABS: Vitamin B12 244 pg/mL (211-911)
[2023-09-19 14:09] LABS: Deamidated Gliadin IgA 3 units (0-19); Deamidated Gliadin IgG 3 units (0-19); Endomysial Antibody IgA Negative (Negative); Immunoglobulin A 171 mg/dL (87-352); t-Transglutaminase IgA 4 U/mL (0-3)
== END | disposition home or self-care (01) ==
LOC: MFPLAB 08:22
PROVIDERS: Family Medicine; Visit Provider Family Medicine
DX: Z00.00 Encounter for general adult medical examination without abnormal findings (principal); E78.00 Pure hypercholesterolemia, unspecified; E03.9 Hypothyroidism, unspecified; R10.9 Unspecified abdominal pain
CPT/HCPCS: 36415; 80053; 80061; 82607; 82784; 83516; 84443; 85025; 86255

== ENCOUNTER → 2023-12-31 | Outpatient (CLI) | payer OTHER, SELFPAY ==
--- NOTE | 2023-12-31 14:38 | BI_ITS ---
MAMMOGRAPHY - BILATERAL SCREENING REASON FOR EXAM: Female, 58 years old. Routine annual screening examination. PERTINENT HISTORY: Aunt with breast cancer. Prior right stereotactic breast biopsy and right excisional biopsy for papilloma. TECHNIQUE: Digital bilateral breast lizzette (3D mammographic acquisition) in the CC and MLO projections. 2-D mediolateral oblique (MLO) and craniocaudad (CC) views of both breasts were obtained. CAD: Full Field Digital Mammography with Computer Added Detection was performed. COMPARISON: Comparison is made with prior outside examination dated September 29, 2020. FINDINGS: Breast Composition: The breasts are heterogeneously dense, which may obscure small masses. There are no dominant masses or suspicious calcifications. A tissue clip marker is seen in the upper the lateral aspect of the right breast. Benign appearing bilateral axillary lymph nodes. No other significant abnormalities are identified. There has been no significant change since the prior study. BI/SCRN MAMM (CAD)W/LIZZETTE BILAT IMPRESSION: Stable bilateral screening mammogram. Yearly follow-up mammogram recommended. (A) ASSESSMENT CATEGORY: BIRADS Category 2: Benign. A letter regarding these results will be sent to the patient by the facility within 30 days. Approximately 10% of breast cancers are not detected by mammography. A normal mammogram should not delay biopsy of a clinically suspicious abnormality. [id number] Electronically Signed: Oleg Maddox MD at 15:38 EDT ,
== END | disposition home or self-care (01) ==
LOC: OPBI 14:36
PROVIDERS: PCP Family Medicine; Referring Provider Family Medicine; Visit Provider Family Medicine
DX: Z12.31 Encounter for screening mammogram for malignant neoplasm of breast (principal)
CPT/HCPCS: 77063; 77067

== ENCOUNTER → 2024-02-19 | Outpatient (CLI) | payer OTHER, SELFPAY | END | disposition home or self-care (01) | PROVIDERS: PCP Family Medicine; Referring Provider Family Medicine; Visit Provider Family Medicine | DX: E03.9 Hypothyroidism, unspecified (principal) | CPT/HCPCS: 36415; 84443 ==

== ENCOUNTER → 2024-04-03 | Outpatient (CLI) | payer OTHER, SELFPAY | END | disposition home or self-care (01) | LOC: MFPLAB 08:42 | PROVIDERS: PCP Family Medicine; Referring Provider Family Medicine; Visit Provider Family Medicine | DX: E03.9 Hypothyroidism, unspecified (principal) | CPT/HCPCS: 36415; 84443 ==

== ENCOUNTER → 2024-04-07 | Outpatient (CLI) | payer OTHER, SELFPAY ==
[2024-04-07 10:32] LABS: Bacteria 0 SEEN /hpf (None Seen); Mucous, Urine 0 SEEN /hpf (<or=2+); Red Blood Cells-Urine 0 SEEN /hpf (0-5); Squamous Epithelial Cells - UA 0 SEEN /hpf (5-10); White Blood Cells 0 SEEN /hpf (0-5)
[2024-04-07 11:00] LABS: Color, Urine Yellow (Yellow); Glucose, Dipstick Normal (Normal); Ketone-Dipstick Negative (Negative); Leukocyte Esterase-Dipstick 25 /ul (Negative); Nitrite-Dipstick Negative (Negative); Occult Blood-Urine Negative /ul (Negative); Protein-Dipstick Negative (Negative); Specific Gravity, Urine 1.015 (1.002-1.030); Urine Bilirubin Dipstick Negative (Negative); Urine Clarity Clear (Clear); Urine Urobilinogen Normal (Normal)
== END | disposition home or self-care (01) ==
LOC: LABSPEC 10:22
PROVIDERS: PCP Family Medicine; Referring Provider Family Medicine; Visit Provider Family Medicine
DX: N39.0 Urinary tract infection, site not specified (principal)
CPT/HCPCS: 81001; 87077; 87086; 87088; 87186

== ENCOUNTER → 2024-08-28 | Outpatient (CLI) | payer BC, SELFPAY | END | disposition home or self-care (01) | LOC: MTLAB 12:43 | PROVIDERS: PCP Family Medicine; Referring Provider Family Medicine; Visit Provider Family Medicine | DX: E03.9 Hypothyroidism, unspecified (principal) | CPT/HCPCS: 36415; 84443 ==

== ENCOUNTER → 2024-10-05 | Outpatient (CLI) | payer BC, SELFPAY ==
--- NOTE | 2024-10-05 09:58 | ART_ITS ---
Reason For Study Reason For Study: Poor circulation in feet Procedure A bilateral lower extremity continuous wave Doppler with analog waveform analysis and ankle brachial indexes. Left Segmental Pressures Left brachial= 103mmHg. Left posterior tibial artery = 126mmHg. Left dorsalis pedis artery = 132mmHg. Left digit = 103 mmHg. The left dorsalis pedis waveforms are triphasic. The left posterior tibial artery waveforms are triphasic. Right Segmental Pressures Right brachial= 106mmHg. Right posterior tibial artery = 132mmHg. Right dorsalis pedis artery = 125mmHg. Right digit = 108 mmHg. The right dorsalis pedis waveforms are triphasic. The right posterior tibial artery waveforms are triphasic. Indices The right ankle brachial index by the dorsalis pedis is 1.18. The right ankle brachial index by the posterior tibial artery is 1.25. The right digital-brachial index is 1.02. The left ankle brachial index by the dorsalis pedis is 1.25. The left ankle brachial index by the posterior tibial artery is 1.19. The left digital-brachial index is 0.97. VL/Ankle Brachial Index Interpretation Summary Triphasic Doppler waveforms are noted at ankle level bilaterally. Pulse-volume recordings appear satisfactory at ankle and digital levels bilaterally. Resting ankle-brachial indices are normal bilat erally. Digital-brachial indices are normal bilaterally. There is no evidence of significant arterial occlusive disease in the lower ext remities bilaterally. Ordering Physician: Marielena Galaviz Referring Physician: MARIELENA GALAVIZ MD Performed By: Dione Abreu RVT
== END | disposition home or self-care (01) ==
PROVIDERS: PCP Family Medicine; Referring Provider Family Medicine; Visit Provider Family Medicine
DX: I99.9 Unspecified disorder of circulatory system (principal)
CPT/HCPCS: 93922

== ENCOUNTER → 2024-10-14 | Outpatient (CLI) | payer BC, SELFPAY ==
--- NOTE | 2024-10-14 08:27 | RAD_ITS ---
EXAM: Single and double contrast esophagram. CLINICAL HISTORY: Dysphagia, gastroesophageal reflux disease. COMPARISON: None. TECHNIQUE: Single and double contrast esophagram FINDINGS: Postsurgical changes are seen of the proximal stomach. Although with slight delay, satisfactory passage of the 13 mm barium tablet into the stomach was noted. The esophagus demonstrates no area of persistent narrowing. A widely patent esophagogastric junction is noted. No mucosal abnormality is seen. No significant esophageal dysphagia was appreciated during the time of this examination. During the time of evaluation, gastroesophageal reflux was not elicited. Limited imaging of the stomach and duodenum demonstrate no abnormality. RAD/Esophagus Dual Contrast IMPRESSION: Slight delay in passage of a 13 mm barium tablet into the stomach was seen. Postsurgical changes are seen at the proximal stomach. No other significant fi nding identified. Reading Location: [place] [id number]
== END | disposition home or self-care (01) ==
PROVIDERS: PCP Family Medicine; Referring Provider Internal Medicine Gastroenterology; Visit Provider Internal Medicine Gastroenterology
DX: K21.9 Gastro-esophageal reflux disease without esophagitis (principal); R13.10 Dysphagia, unspecified
CPT/HCPCS: 74221

== ENCOUNTER → 2025-01-06 | Outpatient (CLI) | payer BC, SELFPAY ==
--- NOTE | 2025-01-06 08:04 | BI_ITS ---
EXAM: SCRN MAMM (CAD)W/LIZZETTE BILAT DATE: 01/06/2025 CLINICAL HISTORY: F, Age 59 y/o , SCREENING TECHNIQUE: SCRN MAMM (CAD)W/LIZZETTE BILAT COMPARISON: Prior exam(s) dated 12/31/2023, 08/08/2021. FINDINGS: TISSUE DENSITY: The breasts are heterogeneously dense, which may obscure small masses. The mammogram demonstrates that the patient has dense breasts. Supplemental screening with whole breast ultrasound or MRI may be considered for further evaluation. Bilateral Breast Mammographic Findings: No significant masses, calcifications or other abnormalities are identified. BI/SCRN MAMM (CAD)W/LIZZETTE BILAT IMPRESSION: There is no mammographic evidence of malignancy. OVERALL FINAL ASSESSMENT BI-RADS 1: NEGATIVE. RECOMMENDATION: Routine annual follow-up in 1 Year A letter with findings and recommendations will be mailed to the patient. Reading Location: [id number]
== END | disposition home or self-care (01) ==
LOC: OPBI 08:03
PROVIDERS: PCP Family Medicine; Referring Provider Family Medicine; Visit Provider Family Medicine
DX: Z12.31 Encounter for screening mammogram for malignant neoplasm of breast (principal)
CPT/HCPCS: 77063; 77067

== ENCOUNTER → 2025-03-08 | Outpatient (CLI) | payer BC, SELFPAY ==
--- OUTSIDE RECORDS SUMMARY | 2025-03-09 05:20 | XMS RPT_ITS ---
Author Name Auto Generated Organization [facility] No Problem Records Found PROCEDURES No Procedure Records Found RESULTS CNPTOUTREACH Observed: 11/17/2024 12:00 AM Status: COMPLETED Source: [facility] Patient Outreach ([facility]) BRAD PROCTOR ([id number]) 1965 F CHT Date Time Provider Department 11/17/24 B[facility] MENDENHALL [facility] During your visit today, we recorded the following information about you: Allergies As of Date: 11/17/2024 Noted Allergy Reaction PENICILLINS 06/23/2019 2 - Rash Date Reviewed: 04/29/2023 Reviewed by: Emerita Suero MA - Fully Assessed Visit Diagnosis:Encounter for screening mammogram for breast cancer [Z12.31] Order(s):[facility] [place] SCREENING W LIZZETTE [[id number]] Order #: [id number] FUTURE Prescriptions as of 12/18/2024 - DULoxetine (CYMBALTA) 60 mg capsule Take 1 capsule by mouth once daily - fluticasone (FLONASE) 50 mcg/actuation nasal spray Use 2 Sprays in each nostril once daily. Rinse mouth after use. - levothyroxine (LEVOXYL) 50 mcg tablet Take 1 tablet by mouth once daily. Take on empty stomach. For Thyroid - CPAP/BIPAP/OTHER Type .CPAPSettings into a note to see current settings/supplies/DME information. - pantoprazole DR (PROTONIX) 20 mg tablet TAKE 1 TABLET BY MOUTH BEFORE BREAKFAST. TAKE ON AN EMPTY STOMACH, 30 MINUTES BEFORE MEAL. - hyoscyamine sublingual (LEVSIN/SL) 0.125 mg Dissolve 1 tablet under the tongue every 4 hours as needed (for abdominal pain). - polyethylene glycol 3350 (MIRALAX) 17 gram/dose powder Take 17 g by mouth once daily as needed for constipation for up to 30 doses. - MULTIVITAMIN ORAL Take by mouth once daily. - docosahexaenoic acid/epa (FISH OIL ORAL) Take by mouth once daily. - conjugated estrogens (PREMARIN) vaginal cream Use 1 g vaginally two times a week. Use 1 g vaginally every night for two weeks and then twice weekly after that - cholecalciferol (VITAMIN D3) 400 unit tab 1,000 Units once daily. Problem List As Of Date 11/17/2024 Noted Resolved Cystocele and rectocele with incomplete uterova*07/12/2020 Mixed stress and urge urinary incontinence [N39*07/12/2020 Pelvic floor weakness [N81.89] 08/12/2020 06/20/2021 Cystocele, midline [N81.11] 08/12/2020 Rectocele [N81.6] 08/12/2020 08/06/2022 Uterovaginal prolapse [N81.4] 08/12/2020 Mixed hyperlipidemia [E78.2] 10/13/2020 GERD (gastroesophageal reflux disease) [K21.9] 10/13/2020 Anxiety and depression [F41.9, F32.A] 10/13/2020 Hypothyroidism [E03.9] 05/01/2021 Fatty liver [K76.0] 05/01/2021 Former smoker [Z87.891] 05/01/2021 History of epigastric pain [Z87.898] 10/10/2021 Neck pain [M54.2] 10/10/2021 08/06/2022 History of alcohol use disorder [Z87.898] 10/10/2021 Encounter Status:Closed by SHANICE, PRODUSER on 12/18/24 ALLERGIES No Allergies Records Found ENCOUNTERS No Encounter Records Found PAYERS No Payer Records Found
== END | disposition home or self-care (01) ==
LOC: MFPLAB 11:50
PROVIDERS: PCP Family Medicine; Visit Provider Family Medicine
DX: E03.9 Hypothyroidism, unspecified (principal)
CPT/HCPCS: 36415; 84443